=== PATIENT | male | born 1950 | race Caucasian/White ===

== ENCOUNTER 2020-11-06 19:45 | Inpatient (IN) | payer MEDICARE, OTHER ==
[~2020-11-06] VITALS: Ht 188 cm; Wt 111.9 kg
[~2020-11-06 19:45] MED LIST: BENICAR HCT 12.1 TA1 PO; BENICAR40 MG PO; CARDIZEM LA180 MG PO; CELEBREX 200MG200 MG PO; CELEXA 20MG20 MG/TAB PO; COUMADIN 2MG2 MG/TAB PO; COZAAR100 MG PO; GLUCOPHAGE XR500 M1 PO; JANTOVEN5 MG PO; JANTOVEN6 MG; KLOR-CON M2020 MEQ PO; LANOXIN 0.25M0.25 MG PO; LASIX 20MG TABL20 MG PO; LASIX 40MG TABL40 MG PO; NEURONTIN300 MG/CAP PO; ULTRAM 50MG TAB50 MG PO; ZOCOR 10MG10 MG PO
[2020-11-06 20:20] LABS: MEAN CELL VOLUME 94 fl (80.0-100.0); MEAN CORPUSCULAR HGB CONC 34 g/dl (33.0-37.0); PLATELET COUNT 314 K/mm3 (130-400); RED BLOOD COUNT 2.57 M/mm3 (4.20-5.60); REDCELL DISTRIBUTION WIDTH-CV 14.2 % (11.5-14.5)
[2020-11-06 20:37] LABS: ALBUMIN 3.1 gm/dL (3.5-5.0); CALCIUM 8.2 mg/dL (8.4-10.2); CREATININE, serum 1.15 (0.66-1.25); POTASSIUM 3.2 mmol/L (3.4-5.0); TOTAL PROTEIN 5.4 gm/dL (6.4-8.2)
[2020-11-06 20:37] LABS: HEMATOCRIT 24.1 % (42.0-52.0); HEMOGLOBIN 8.2 g/dl (13.5-18.0); MEAN CORPUSCULAR HEMOGLOBIN 32 pg (27.0-31.0)
[2020-11-06 20:48] LABS: TROPONIN-I 0.023 ng/mL (0.000-0.035)
[2020-11-06 20:55] LABS: COLLECTION METHOD CLEAN CATCH
[2020-11-06 21:30] LABS: MUCOUS Present /lpf; PH 5 (5-8); URINE APPEARANCE Hazy; URINE BACTERIA None Seen /hpf; URINE BILIRUBIN Negative (NEGATIVE); URINE BLOOD 1+ (NEGATIVE); URINE COLOR Yellow; URINE GLUCOSE Negative (NEGATIVE); URINE KETONE Negative (NEGATIVE); URINE LEUKOCYTE ESTERASE 3+ (NEGATIVE); URINE NITRATE Negative (NEGATIVE); URINE PROTEIN(semi-quant) 1+ (NEGATIVE)
[2020-11-06 21:36] LABS: BAND 3 % (0-10); LYMPHOCYTE 6 % (20.0-51.0); MYELOCYTE 2 % (0-0); NEUTROPHILS 86 % (42.0-75.2)
[2020-11-06 21:38] LABS: BURR CELLS 1+; PLATELET ESTIMATE NORMAL (NORMAL)
[2020-11-06 21:40] LABS: SQUAMOUS EPITHELIAL 0-2 /hpf
[2020-11-06 21:53] LABS: INR > 5.0 (0.8-3.0)
[2020-11-06] MEDS ORDERED: ULTRAM 50MG TAB50 MG PO (22:03)
[2020-11-06] MEDS ORDERED: ZAROXOLYN5 MG PO (22:03)
[2020-11-06] MEDS ORDERED: CELEXA40 MG PO (22:04)
[2020-11-06] MEDS ORDERED: CELEBREX 200MG200 MG PO (22:04)
[2020-11-06] MEDS ORDERED: GLUCOPHAGE XR500 M1 PO (22:05)
[2020-11-06] MEDS ORDERED: COUMADIN4 MG PO (22:05)
[2020-11-06] MEDS ORDERED: COUMADIN 5MG5 MG/TAB PO (22:06)
--- NOTE | 2020-11-06 23:00 | NUR ---
Received report from MAYCO Lea in the ED. Awaiting patient arrival to unit at this time.
[2020-11-07] VITALS (669 sets, daily range): BP systolic 96–148; BP diastolic 55–105; PULSE 86–119; TEMP 97–98.9; O2SAT 57–100
--- NOTE | 2020-11-07 01:00 | NUR ---
Patient arrived to unit via stretcher and transferred to bed. VSS upon arrival. Patient a&o x 4. No concerns or complaints noted from patient at this time. Will complete admission assessment and resume care of patient at this time.
[2020-11-07 02:31] LABS: HEMATOCRIT 18.6 % (42.0-52.0); HEMOGLOBIN 6.4 g/dl (13.5-18.0)
--- NOTE | 2020-11-07 07:00 | NUR ---
PT RESTING IN BED. PT RECEIVED IV KCL AND RBC'S AT THIS TIME. VSS. PT NPO FOR GI CONSULT. WILL CONTINUE TO MONITOR.
[2020-11-07 09:36] LABS: MEAN CELL VOLUME 94 fl (80.0-100.0); MEAN CORPUSCULAR HGB CONC 34 g/dl (33.0-37.0); MEAN PLATELET VOLUME 9.8 fl (7.4-10.4); PLATELET COUNT 258 K/mm3 (130-400); RED BLOOD COUNT 1.99 M/mm3 (4.20-5.60); REDCELL DISTRIBUTION WIDTH-CV 14.9 % (11.5-14.5)
[2020-11-07 09:44] LABS: ALBUMIN 2.7 gm/dL (3.5-5.0); BILIRUBIN,TOTAL 0.9 mg/dL (0.0-1.0); CALCIUM 7.4 mg/dL (8.4-10.2); CREATININE, serum 1.72 (0.66-1.25); POTASSIUM 4.1 mmol/L (3.4-5.0); TOTAL PROTEIN 4.9 gm/dL (6.4-8.2)
[2020-11-07 09:52] LABS: HEMATOCRIT 18.6 % (42.0-52.0); HEMOGLOBIN 6.4 g/dl (13.5-18.0); MEAN CORPUSCULAR HEMOGLOBIN 32 pg (27.0-31.0)
[2020-11-07 10:00] LABS: INR 4.1 (0.8-3.0)
[2020-11-07 10:45] LABS: PROTHROMBIN TIME 46.1 SECONDS (9.7-12.8)
--- NOTE | 2020-11-07 11:38 | NUR ---
NOTIFIEF OF HGB, INR, AND LACTIC. AWAITING ORDERS.
[2020-11-07 11:39] LABS: BAND 6 % (0-10); LYMPHOCYTE 3 % (20.0-51.0); NEUTROPHILS 89 % (42.0-75.2); PLATELET ESTIMATE NORMAL (NORMAL)
--- NOTE | 2020-11-07 16:05 | NUR ---
0900 'S OFFICE CALLED REGARDING CONSULT. 1600 'S CELL CALLED TO FOLLOW UP WITH CONSULT. NO ANSWER. MESSAGED LEFT.
--- NOTE | 2020-11-07 16:11 | NUR ---
RETURNED CALL. NOTIFIED OF CONSULT.
[2020-11-07 16:16] LABS: CALCIUM 6.9 mg/dL (8.4-10.2); CREATININE, serum 1.79 (0.66-1.25); POTASSIUM 4.3 mmol/L (3.4-5.0)
[2020-11-07 16:20] LABS: HEMATOCRIT 21.3 % (42.0-52.0); HEMOGLOBIN 7.1 g/dl (13.5-18.0)
--- NOTE | 2020-11-07 16:36 | NUR ---
Marketing Copywriter met with the patient to complete intake. [place] with his , Beena. The patient has a cane, walker, and is independent with ADLs. The patient's PCP is Dr. Cid and patient receives medications from [facility] in [place]. The patient does not have advanced directives in the EMR but states they are complete and designate his Beena. The patient plans to return home with Beena with no anticipated needs. PT/OT ordered. *Discharge disposition at this time: Home with spouse (PT/OT ordered)
[2020-11-08] VITALS (813 sets, daily range): BP systolic 126–160; BP diastolic 71–89; PULSE 81–97; TEMP 98–99.8; O2SAT 73–100
[2020-11-08 01:42] LABS: HEMATOCRIT 18.8 % (42.0-52.0); HEMOGLOBIN 6.6 g/dl (13.5-18.0)
[2020-11-08 06:13] LABS: MEAN CELL VOLUME 93 fl (80.0-100.0); MEAN CORPUSCULAR HGB CONC 34 g/dl (33.0-37.0); MEAN PLATELET VOLUME 9.4 fl (7.4-10.4); PLATELET COUNT 248 K/mm3 (130-400); REDCELL DISTRIBUTION WIDTH-CV 14.6 % (11.5-14.5)
[2020-11-08 06:14] LABS: HEMATOCRIT 23.2 % (42.0-52.0); HEMOGLOBIN 7.9 g/dl (13.5-18.0); MEAN CORPUSCULAR HEMOGLOBIN 32 pg (27.0-31.0)
[2020-11-08 06:32] LABS: ALBUMIN 2.6 gm/dL (3.5-5.0); BILIRUBIN,TOTAL 0.7 mg/dL (0.0-1.0); CALCIUM 7.4 mg/dL (8.4-10.2); CREATININE, serum 1.6 (0.66-1.25); POTASSIUM 3.6 mmol/L (3.4-5.0); TOTAL PROTEIN 4.9 gm/dL (6.4-8.2)
[2020-11-08 06:40] LABS: INR 5.6 (0.8-3.0); PROTHROMBIN TIME 63.2 SECONDS (9.7-12.8)
[2020-11-08 07:08] LABS: ANISOCYTOSIS 1+; BAND 4 % (0-10); LYMPHOCYTE 5 % (20.0-51.0); METAMYELOCYTE 2 % (0-0); NEUTROPHILS 84 % (42.0-75.2); POIKILOCYTOSIS 1+
[2020-11-08 07:09] LABS: HYPOCHROMIA 1+; OVALOCYTES 1+; PLATELET ESTIMATE NORMAL (NORMAL)
--- NOTE | 2020-11-08 07:15 | NUR ---
Dr Owen at bedside to see patient. No plans for endoscopy procedure at this time. Notified of critical INR level. Reports can eat from his standpoint.
--- NOTE | 2020-11-08 08:00 | NUR ---
Patient napping in bed; awakens easily. VS stable at this time. Reports some left lower chest pain and chronic knee pain from arthritis. Patient has fallen multiple times while at time. States the chest pain began after the fall. Hospitalist notified of the chest pain. No new orders received. Can administer PRN tramadol for pain.
[2020-11-08 09:25] LABS: MAGNESIUM 1.8 mg/dL (1.6-2.3)
--- NOTE | 2020-11-08 18:45 | NUR ---
Patient found a large engored tick on himself that was not attached at the time. Placed in a specimen cup and hospitalist notified. Skin check performed but did not find any other specimens.
--- NOTE | 2020-11-08 21:39 | NUR ---
PATIENT OPENS EYES WHEN BEING APPROACHED BY STAFF, ORIENTED TIME 3, COMPLAINS OF NUSIANCE PAIN OF LT KNEE AND RIGHT HIP, DENIES MEDICATION, REPOSITION TO COMFORT PATIENT DIRECTED.
[2020-11-09] VITALS (625 sets, daily range): BP systolic 108–128; BP diastolic 69–90; PULSE 72–91; TEMP 98–99.1; O2SAT 65–100
[2020-11-09 01:04] LABS: HEMATOCRIT 20.3 % (42.0-52.0); HEMOGLOBIN 7.1 g/dl (13.5-18.0)
[2020-11-09 04:32] LABS: MEAN CELL VOLUME 92 fl (80.0-100.0); MEAN CORPUSCULAR HGB CONC 34 g/dl (33.0-37.0); MEAN PLATELET VOLUME 8.8 fl (7.4-10.4); PLATELET COUNT 236 K/mm3 (130-400); RED BLOOD COUNT 2.25 M/mm3 (4.20-5.60); REDCELL DISTRIBUTION WIDTH-CV 15.9 % (11.5-14.5)
[2020-11-09 04:39] LABS: INR 1.6 (0.8-3.0)
[2020-11-09 04:41] LABS: HEMATOCRIT 20.6 % (42.0-52.0); MEAN CORPUSCULAR HEMOGLOBIN 31 pg (27.0-31.0)
[2020-11-09 04:52] LABS: ALBUMIN 2.2 gm/dL (3.5-5.0); BILIRUBIN,TOTAL 1.2 mg/dL (0.0-1.0); CALCIUM 7.8 mg/dL (8.4-10.2); CHOLESTEROL RISK RATIO 2.1; CREATININE, serum 0.87 (0.66-1.25); POTASSIUM 3.2 mmol/L (3.4-5.0); TOTAL PROTEIN 4.2 gm/dL (6.4-8.2)
[2020-11-09 05:43] LABS: BAND 2 % (0-10); LYMPHOCYTE 16 % (20.0-51.0); METAMYELOCYTE 2 % (0-0); NEUTROPHILS 67 % (42.0-75.2)
[2020-11-09 05:44] LABS: PLATELET ESTIMATE NORMAL (NORMAL)
--- NOTE | 2020-11-09 07:00 | NUR ---
PT RESTING IN BED. PT HAS NS AND ZOSYN RUNNING. PT'S VSS. WILL CONTIUE TO MONITOR.
--- NOTE | 2020-11-09 18:19 | NUR ---
Pt states his vision is fuzzy and making him feel tired. Pt's vss. Pt's BG WNL. Pt also states he takes fab at home for allergies. Deisi GARRETT notified of above. States she will reorder his fab and come and assess pt.
--- NOTE | 2020-11-09 20:00 | NUR ---
PATIENT CALM AND ALERT, STATES "I'M COMFORTABLE", ASKING TO HELPED IN AND OUT OF BED SO HE CAN BE READY FOR SOME MOIZ WHO WANTS ME TO BE OUT OF BED, RANGE OF MOTION EXERCISES PERFORMED WITH RESISTANCE, WILL CONTINUE TO WORK WITH PATIENT
[2020-11-10] VITALS (303 sets, daily range): BP systolic 110–120; BP diastolic 65–74; PULSE 72–87; TEMP 97.4–98.9; O2SAT 75–100
[2020-11-10 05:33] LABS: BASO % 0.1 % (0.0-2.0); EOS # 0.1 (0.0-0.7); EOS % 0.8 % (0-4.0); GRAN # 10.1 (1.4-6.5); GRAN % 67.4 % (42.2-75.2); LYMPH # 1.4 (1.2-3.4); LYMPH % 9.4 % (20.0-51.0); MEAN CELL VOLUME 94 fl (80.0-100.0); MEAN CORPUSCULAR HGB CONC 33 g/dl (33.0-37.0); MEAN PLATELET VOLUME 9.1 fl (7.4-10.4); MONO % 13.5 % (1.7-9.3); PLATELET COUNT 209 K/mm3 (130-400); RED BLOOD COUNT 2.24 M/mm3 (4.20-5.60); REDCELL DISTRIBUTION WIDTH-CV 17.1 % (11.5-14.5)
[2020-11-10 05:40] LABS: HEMATOCRIT 21.1 % (42.0-52.0); HEMOGLOBIN 6.9 g/dl (13.5-18.0); MEAN CORPUSCULAR HEMOGLOBIN 31 pg (27.0-31.0)
[2020-11-10 05:43] LABS: ALBUMIN 2.4 gm/dL (3.5-5.0); BILIRUBIN,TOTAL 1.3 mg/dL (0.0-1.0); CALCIUM 7.8 mg/dL (8.4-10.2); CREATININE, serum 0.66 (0.66-1.25); MAGNESIUM 1.8 mg/dL (1.6-2.3); POTASSIUM 3.2 mmol/L (3.4-5.0); TOTAL PROTEIN 4.6 gm/dL (6.4-8.2)
--- NOTE | 2020-11-10 07:00 | NUR ---
Pt resting in bed. Pt's VSS. Pt receiving K replacement. Will notify of hgb 6.9. Will continue to monitor.
--- NOTE | 2020-11-10 15:25 | NUR ---
REPORT CALLED TO BRADEN MAO AT 1500. ALL QUESTIONS ANSWERED. PT TRANSFERED TO FLOOR BED AND TAKEN TO ROOM 315. JUDITH MAO MET BEDSIDE. PT'S CHRISSIE CALLED AND UPDATED ON TRANSFER.
--- NOTE | 2020-11-10 15:32 | NUR ---
PT ARRIVED TO FLOOR, ASSSESSMENT PERFORMED, REPORTS PAIN 6/10 IN HIPS AND KNEES, TRAMADOL GIVEN WITH OTHER MEDICATIONS THAT WERE DUE, WATER BROUGHT IN FOR PT, EDUCATED GENERAL HOUSE WORKER LIGHT AND PHONE AND DINNER ORDERING SYSTEM. NO OTHER NEEDS AT THIS TIME.
--- NOTE | 2020-11-10 17:23 | NUR ---
had dark tarry loose stool, external male cath attached, pt pleasant, aox4, pauma, frequently repositioned, pt reported pain in joints, medication given. helped pt order dinner, updated. no other needs.
[2020-11-11] VITALS (7 sets, daily range): BP systolic 113–133; BP diastolic 69–91; PULSE 73–85; TEMP 98–98.5
--- NOTE | 2020-11-11 06:03 | NUR ---
Did have a fairly quiet night-- good output via external catheter, had a very small black stoolx1,, was given Ultram for hip/knee pain x1
[2020-11-11 07:13] LABS: MEAN CELL VOLUME 98 fl (80.0-100.0); MEAN CORPUSCULAR HGB CONC 32 g/dl (33.0-37.0); MEAN PLATELET VOLUME 8.8 fl (7.4-10.4); PLATELET COUNT 249 K/mm3 (130-400); RED BLOOD COUNT 2.41 M/mm3 (4.20-5.60); REDCELL DISTRIBUTION WIDTH-CV 17.8 % (11.5-14.5)
[2020-11-11 07:18] LABS: INR 5.2 (0.8-3.0); PROTHROMBIN TIME 59.1 SECONDS (9.7-12.8)
[2020-11-11 07:21] LABS: HEMATOCRIT 23.5 % (42.0-52.0); HEMOGLOBIN 7.4 g/dl (13.5-18.0); MEAN CORPUSCULAR HEMOGLOBIN 31 pg (27.0-31.0)
[2020-11-11 07:58] LABS: ALBUMIN 2.5 gm/dL (3.5-5.0); BILIRUBIN,TOTAL 1.5 mg/dL (0.0-1.0); CALCIUM 7.9 mg/dL (8.4-10.2); CREATININE, serum 0.73 (0.66-1.25); MAGNESIUM 1.8 mg/dL (1.6-2.3); POTASSIUM 3.7 mmol/L (3.4-5.0)
[2020-11-11 08:37] LABS: BASOPHIL 1 % (0-2); EOSINOPHIL 1 % (0-4); LYMPHOCYTE 11 % (20.0-51.0); METAMYELOCYTE 2 % (0-0); NEUTROPHILS 77 % (42.0-75.2)
[2020-11-11 08:38] LABS: ANISOCYTOSIS 2+; HYPOCHROMIA 2+; PLATELET ESTIMATE NORMAL (NORMAL)
--- NOTE | 2020-11-11 11:13 | NUR ---
Shift assessment complete. A&Ox4. Heart RRR. Lungs CTA. Bowel sounds active, abdomen nondistended, denies tenderness. Reports chronic pain to hips and knees, 11/21. Tramadol given per orders. 3+ edema to BLE. Large bruises scattered over body, large bruise to right buttock and several more over arms and legs. Vitamin K infusion started at this time and remained at pt bedside for duration of infusion.
[2020-11-11 15:29] LABS: HEMATOCRIT 26.9 % (42.0-52.0); HEMOGLOBIN 8.5 g/dl (13.5-18.0)
[2020-11-11 15:31] LABS: INR 2.7 (0.8-3.0); PROTHROMBIN TIME 30.7 SECONDS (9.7-12.8)
--- NOTE | 2020-11-11 19:35 | NUR ---
Initial shift assessment done- patient very upset/ states previous nurse stated she would be right back with another external cath to put on-- previous nurse did attempt to put new condom external cath on at shift change and was unsuccessful, also was informed in report that doctor would like pt to start voiding on his own in a urinal -- talked with patient at length about trying a urinal tonight and he was ok with this--did use the urinal at this time for 250cc yellow urine,, patient confused tonight- when asked about a tick that was found on his body in ICU, he got very defensive and states that we had already talked about this twice tonight??-defensive and angry tonight. VSS, Denies pain at this time.
[2020-11-12 03:18] VITALS: BP 111/65; PULSE 69; TEMP 97.5
--- NOTE | 2020-11-12 05:47 | NUR ---
Quiet night-has been sleeping well,, VSS,, used urinal throughout the night.
[2020-11-12 06:00] LABS: MEAN CELL VOLUME 100 fl (80.0-100.0); MEAN CORPUSCULAR HGB CONC 32 g/dl (33.0-37.0); MEAN PLATELET VOLUME 8.9 fl (7.4-10.4); PLATELET COUNT 268 K/mm3 (130-400); RED BLOOD COUNT 2.51 M/mm3 (4.20-5.60)
[2020-11-12 06:05] LABS: INR 1.4 (0.8-3.0); PROTHROMBIN TIME 15.3 SECONDS (9.7-12.8)
[2020-11-12 06:14] LABS: HEMATOCRIT 25.2 % (42.0-52.0); MEAN CORPUSCULAR HEMOGLOBIN 32 pg (27.0-31.0)
[2020-11-12 06:18] LABS: ALBUMIN 2.6 gm/dL (3.5-5.0); BILIRUBIN,TOTAL 1.7 mg/dL (0.0-1.0); CREATININE, serum 0.61 (0.66-1.25); MAGNESIUM 1.9 mg/dL (1.6-2.3); POTASSIUM 4.3 mmol/L (3.4-5.0)
--- NOTE | 2020-11-12 06:30 | NUR ---
PT ASLEEP DURING ROUNDING. NO CONCERNS AT THIS TIME. WILL RETURN FOR ASSESSMENT.
[2020-11-12 06:53] LABS: ANISOCYTOSIS 2+; BAND 3 % (0-10); EOSINOPHIL 1 % (0-4); LYMPHOCYTE 10 % (20.0-51.0); NEUTROPHILS 75 % (42.0-75.2)
[2020-11-12 07:24] VITALS: BP 126/72; PULSE 80; TEMP 97.9
[2020-11-12 12:02] VITALS: BP 117/68; PULSE 71; TEMP 98.5
--- NOTE | 2020-11-12 12:19 | NUR ---
PT IS SITTING UP IN BED, HAS NOT BEEN OUT OF BED EXCEPT WITH PT/OT. PT DENIES ANY PAIN AND HAS NO COMPLAINTS OR CONCERNS. THERE ARE NO CONCERNS FROM THIS RN AT THIS TIME.
--- NOTE | 2020-11-12 12:59 | NUR ---
PT is recommending post-acute rehab and to consider IPR. OLENA met with the patient to discuss their recommendation. The patient reports that he would be interested in post-acute rehab. SW provided him with Medicare.gov's list of SNFs in the [facility]. The patient reports that he would prefer to just stay in the [facility]. He preferred 1) IPR and he was open for SW to send referrals to the [facility] as his second preference. OLENA consulted Eliza, with IPR. OLENA contacted and faxed a referral to [facility], [facility], and [facility]. Awaiting screens. OLENA attempted to contact and update the patient's , Beena. OLENA left her a voicemail. *Discharge plan: post-acute rehab, awaiting acceptance*
--- NOTE | 2020-11-12 13:46 | NUR ---
Yumiko, at [facility], reports that they are able to accept the patient for a skilled stay.
[2020-11-12 16:17] VITALS: BP 115/68; PULSE 83; TEMP 98.3
--- NOTE | 2020-11-12 20:00 | NUR ---
Assessment complete. Patient is alert and oriented with complaints of generalized pain; PRN tramadol administered per patient request. 2+ pitting edema is present in bilateral lower extremities and feet. Patient has voided 1000 mls into urinal; urine is yellow and clear. Lungs are clear with diminished bases and heart sounds are normal/regular. Bowel sounds audible in all quadrants. Zosyn infusing into right forearm IV. Comfort measures provided and no additional concerns. Call light in reach and bed alarm set.
[2020-11-12 20:17] VITALS: BP 110/71; PULSE 77; TEMP 97.8
[2020-11-12 23:39] VITALS: BP 103/64; PULSE 71; TEMP 97.4
[2020-11-13 04:45] VITALS: BP 116/68; PULSE 77; TEMP 98
[2020-11-13 06:27] LABS: MEAN CELL VOLUME 102 fl (80.0-100.0); MEAN CORPUSCULAR HGB CONC 30 g/dl (33.0-37.0); MEAN PLATELET VOLUME 8.7 fl (7.4-10.4); PLATELET COUNT 299 K/mm3 (130-400); RED BLOOD COUNT 2.69 M/mm3 (4.20-5.60); REDCELL DISTRIBUTION WIDTH-CV 19.9 % (11.5-14.5)
[2020-11-13 06:30] LABS: INR 1.5 (0.8-3.0); PROTHROMBIN TIME 17.2 SECONDS (9.7-12.8)
[2020-11-13 06:35] LABS: HEMATOCRIT 27.4 % (42.0-52.0); HEMOGLOBIN 8.3 g/dl (13.5-18.0); MEAN CORPUSCULAR HEMOGLOBIN 31 pg (27.0-31.0)
[2020-11-13 06:47] LABS: CALCIUM 8.2 mg/dL (8.4-10.2); CREATININE, serum 0.79 (0.66-1.25); POTASSIUM 4.3 mmol/L (3.4-5.0)
[2020-11-13 08:09] LABS: ANISOCYTOSIS 2+; BAND 1 % (0-10); EOSINOPHIL 3 % (0-4); LYMPHOCYTE 6 % (20.0-51.0); METAMYELOCYTE 2 % (0-0); NEUTROPHILS 81 % (42.0-75.2); PLATELET ESTIMATE NORMAL (NORMAL)
[2020-11-13 08:10] LABS: HYPOCHROMIA 3+
[2020-11-13 08:18] VITALS: BP 122/69; PULSE 72; TEMP 98.1
[2020-11-13 10:52] VITALS: BP 109/73; PULSE 81; TEMP 97.7
--- NOTE | 2020-11-13 14:39 | NUR ---
Eliza, with [facility], reports that they are able to accept the patient. The patient may be able to d/c tomorrow. OLENA notified and faxed updates to Yumiko at [facility]. The patient's , Beena, returned OLENA's phone call. OLENA provided her with an update. Beena was in agreement to the plan and for the patient to either go to [facility] or [facility]. Beena provided with her cell phone number (#[phone]). *Discharge plan: Has been accepted to [facility] and [facility]*
[2020-11-13 17:00] VITALS: BP 111/69; PULSE 71; TEMP 98.2
--- NOTE | 2020-11-13 20:00 | NUR ---
Assessment complete. Patient alert and oriented with complaints of generalized pain 4/10; PRN Tramadol administered. 2+ pitting edema in bilateral lower extremities is present. Patient requests a snack, which is provided. 350 mls of clear, yellow urine is emptied from urinal. No new concerns at this time, will continue to monitor. Call light in reach.
--- NOTE | 2020-11-13 20:05 | NUR ---
PT HAS HAD UNEVENTFUL DAY. PLAN IS TO TRANSFER TO [facility] TOMORROW. REPORT GIVEN TO MAYCO ANTONIO
[2020-11-13 20:29] VITALS: BP 115/72; PULSE 70; TEMP 98
[2020-11-14 00:17] VITALS: BP 111/64; PULSE 69; TEMP 97.8
[2020-11-14 03:15] VITALS: BP 99/71; PULSE 57; TEMP 97.9
[2020-11-14 06:35] LABS: INR 1.5 (0.8-3.0); PROTHROMBIN TIME 16.3 SECONDS (9.7-12.8)
[2020-11-14 06:43] LABS: CALCIUM 8.5 mg/dL (8.4-10.2); CREATININE, serum 0.76 (0.66-1.25); POTASSIUM 4.6 mmol/L (3.4-5.0)
[2020-11-14 06:46] LABS: MEAN CELL VOLUME 104 fl (80.0-100.0); MEAN CORPUSCULAR HGB CONC 30 g/dl (33.0-37.0); MEAN PLATELET VOLUME 8.8 fl (7.4-10.4); PLATELET COUNT 335 K/mm3 (130-400); RED BLOOD COUNT 2.78 M/mm3 (4.20-5.60); REDCELL DISTRIBUTION WIDTH-CV 20.2 % (11.5-14.5)
[2020-11-14 06:52] LABS: HEMOGLOBIN 8.8 g/dl (13.5-18.0); MEAN CORPUSCULAR HEMOGLOBIN 32 pg (27.0-31.0)
[2020-11-14 07:11] LABS: MAGNESIUM 2.3 mg/dL (1.6-2.3)
[2020-11-14 07:31] VITALS: BP 106/64; PULSE 69; TEMP 98.1
[2020-11-14 07:44] LABS: BAND 1 % (0-10); BASOPHIL 1 % (0-2); EOSINOPHIL 3 % (0-4); LYMPHOCYTE 10 % (20.0-51.0); METAMYELOCYTE 1 % (0-0); MYELOCYTE 1 % (0-0); NEUTROPHILS 74 % (42.0-75.2)
[2020-11-14 07:46] LABS: ANISOCYTOSIS 2+; HYPOCHROMIA 3+; PLATELET ESTIMATE NORMAL (NORMAL)
[2020-11-14 07:48] LABS: SCHISTOCYTES 1+
--- NOTE | 2020-11-14 08:28 | NUR ---
Fahad, at [facility], reports that they are able to accept the patient.
--- NOTE | 2020-11-14 09:32 | NUR ---
Pt assessment complete. Pt is sitting up in bed upon entry, he is A/O x4. His breathing is even and unlabored on RA. He currently denies pain, states he does have a little "chest pain" with deep inspiration. Reports having a BM this am. BLE elevated on pillows. Pt states he got up to the restroom today, feels he does need therapy. No further needs, call light within reach.
[2020-11-14 11:39] VITALS: BP 112/75; PULSE 71
[2020-11-14 12:41] VITALS: BP 123/62; PULSE 77; TEMP 98
--- NOTE | 2020-11-14 16:08 | NUR ---
OLENA attended clinical rounds. The team would like to check the patient's orthostatics. The PA then notified SW that the patient may now need an endoscopy and she is checking with the GI doctor on when they can do it. Possibly tomorrow, Wednesday, or after IPR. OLENA attempted to contact and update the patient's . OLENA left her a voicemail.
[2020-11-14 17:13] VITALS: BP 123/69; PULSE 67; TEMP 98.1
--- NOTE | 2020-11-14 18:46 | NUR ---
pt had uneventful day. Up to the restroom with 1A and walker. BLE elevated on pillows. No pain reported. Good UOP. CUrrently on bowel prep. POC discussed with patient. No needs at this itme .
--- NOTE | 2020-11-14 20:00 | NUR ---
Assessment complete. PAtient is alert and oriented with complaints of generalized pain 4/10; PRN tramadol administered. Bilateral lower extremity edema is still present with 2+ pitting. Patient has started Golytley bowel prep; He is up to [facility] with assistance of two and gaitbelt/walker. Call light in reach, will continue bowel prep.
[2020-11-15 00:15] VITALS: BP 129/64; PULSE 77; TEMP 97.2
[2020-11-15 05:16] VITALS: BP 116/80; PULSE 62; TEMP 98.9
[2020-11-15 07:20] VITALS: BP 121/74; PULSE 82; TEMP 98.5
--- NOTE | 2020-11-15 07:30 | NUR ---
Patient called for assistance to BSC, 1assist with walker and gait belt. Reporting pain in legs r/t swelling. A&Ox4. VSS. IV CDI. NPO for procedure. Contact precautions in place. No further needs expressed from the patient. Call light within reach
[2020-11-15 08:34] LABS: MEAN CELL VOLUME 104 fl (80.0-100.0); MEAN CORPUSCULAR HGB CONC 31 g/dl (33.0-37.0); MEAN PLATELET VOLUME 8.7 fl (7.4-10.4); PLATELET COUNT 380 K/mm3 (130-400); RED BLOOD COUNT 3.05 M/mm3 (4.20-5.60); REDCELL DISTRIBUTION WIDTH-CV 21.3 % (11.5-14.5)
[2020-11-15 08:43] LABS: HEMATOCRIT 31.7 % (42.0-52.0); HEMOGLOBIN 9.7 g/dl (13.5-18.0); MEAN CORPUSCULAR HEMOGLOBIN 32 pg (27.0-31.0)
[2020-11-15 08:50] LABS: CALCIUM 8.2 mg/dL (8.4-10.2); CREATININE, serum 0.7 (0.66-1.25); POTASSIUM 4.2 mmol/L (3.4-5.0)
[2020-11-15 09:01] LABS: ANISOCYTOSIS 2+; BAND 4 % (0-10); EOSINOPHIL 2 % (0-4); LYMPHOCYTE 8 % (20.0-51.0); METAMYELOCYTE 1 % (0-0); NEUTROPHILS 77 % (42.0-75.2); PLATELET ESTIMATE NORMAL (NORMAL)
[2020-11-15] MEDS ORDERED: TOPROL XL 25MG25 MG PO (10:54)
[2020-11-15] MEDS ORDERED: CLARITIN 1010 MG/TAB PO (10:54)
[2020-11-15] MEDS ORDERED: FERRO-TIME325 MG PO (10:54)
[2020-11-15] MEDS ORDERED: ALDACTONE 25MG25 M1 PO (10:55)
--- NOTE | 2020-11-15 10:56 | NUR ---
The hospitalist notified OLENA that they will wait until after the patient's stay in [facility] to do the colonoscopy as an outpatient. The hospitalist is ready to d/c the patient today. OLENA notified Princess with [facility]. [place] reports that they are able to accept the patient today. The patient is to discharge today, 11/15, to [facility]'s [facility]. OLENA contacted and updated the patient's , Beena. She was agreeable to the above plan. No additional needs at this time.
[2020-11-15] MEDS ORDERED: PROTONIX 40MG T40 MG PO (10:57)
[2020-11-15] MEDS ORDERED: ASPIRIN 81M81 MG/TA2 PO (10:58)
[2020-11-15 12:00] VITALS: BP 122/77; PULSE 71; TEMP 97.9
== END 2020-11-15 16:00 | DRG 871 ==
LOC: COL.ER 19:45 → MEDICAL 22:23 → ICU 22:23 → MEDICAL 11-10 15:24
PROVIDERS: Emergency Medicine; Hospitalist; Nurse Practitioner Family; Physician Assistant; Student in an Organized Health Care Education/Training Program; ADMIT Internal Medicine
DX: A41.9 Sepsis, unspecified organism (principal); R65.21 Severe sepsis with septic shock; K72.00 Acute and subacute hepatic failure without coma; R57.1 Hypovolemic shock; I50.21 Acute systolic (congestive) heart failure; N39.0 Urinary tract infection, site not specified; K92.1 Melena; D68.32 Hemorrhagic disorder due to extrinsic circulating anticoagulants; I42.9 Cardiomyopathy, unspecified; N17.9 Acute kidney failure, unspecified; E87.3 Alkalosis; E87.1 Hypo-osmolality and hyponatremia; I48.20 Chronic atrial fibrillation, unspecified; I44.2 Atrioventricular block, complete; B17.9 Acute viral hepatitis, unspecified; D62 Acute posthemorrhagic anemia; I11.0 Hypertensive heart disease with heart failure; E78.5 Hyperlipidemia, unspecified; I48.91 Unspecified atrial fibrillation; E87.6 Hypokalemia; M79.81 Nontraumatic hematoma of soft tissue; E27.9 Disorder of adrenal gland, unspecified; H52.03 Hypermetropia, bilateral; H11.153 Pinguecula, bilateral; T45.515A Adverse effect of anticoagulants, initial encounter; E11.9 Type 2 diabetes mellitus without complications; F17.210 Nicotine dependence, cigarettes, uncomplicated; Z79.01 Long term (current) use of anticoagulants; Z95.0 Presence of cardiac pacemaker; Z79.84 Long term (current) use of oral hypoglycemic drugs; Z96.642 Presence of left artificial hip joint
CPT/HCPCS: 99223-AI; 99232-AI; 99233-AI; C9113; C9132; J0696; J1815; J1940; J2543; J2704; J3010; J3430; J3480; J7030; P9016; Q9967

== ENCOUNTER 2020-11-15 11:26 | Inpatient (IN) | payer MEDICARE, OTHER ==
[~2020-11-15] VITALS: Ht 188 cm; Wt 104.8 kg
[~2020-11-15 11:26] MED LIST changes: +ALDACTONE 25MG25 M1 PO; +ASPIRIN 81M81 MG/TA2 PO; +CELEXA40 MG PO; +CLARITIN 1010 MG/TAB PO; +COUMADIN 5MG5 MG/TAB PO; +COUMADIN4 MG PO; +FERRO-TIME325 MG PO; +PROTONIX 40MG T40 MG PO; +TOPROL XL 25MG25 MG PO; +ZAROXOLYN5 MG PO
[2020-11-15 18:09] VITALS: BP 98/70; PULSE 75; TEMP 98.7
--- NOTE | 2020-11-15 18:30 | NUR ---
Patient arrived to the room from Medical at about 1630. Denies nausea. Stated having some pain to BLE/FEET. He couldn't really describe the pain but stated the pain starts when he stands up and walks. Denies pain when sitting down and his legs are elvated. Pitting edema to BLE. Several bruises to bilateral legs. He stated he has several falls at home before coming to the hospital. He also has 2 large bruises to his mid and right upper chest, about softball sized. No other changes at this time. Call light within reach.
[2020-11-16 06:18] VITALS: BP 105/66; PULSE 72; TEMP 97.9
--- NOTE | 2020-11-16 07:10 | NUR ---
PATIENT ALERT AND ORIENTED. OUT OF BED WITH ONE ASSIST AND WALKER. INCONTINENT OF BOWEL. NO EVENT OVER NIGHT.
--- NOTE | 2020-11-16 10:48 | NUR ---
Patient has bilateral lower leg edema and foot adema. He was measured for knee high Kvng Hose and they were applied. Patient continues on contact precaustions for MRSA. Patient's blood sugar was taken after he had eaten so patient refused to take morning insulin reporting that it is usually low in the mornings before breakfast. Patient uses the urinal at bedside. He was seen by Dr. Engel this morning. See new order for 500 ml free water restriction and adjustments to some of his meds. Patient currently working with therapy at this time.
--- NOTE | 2020-11-16 12:16 | NUR ---
Patient had blood sugar of 86 and was given Cranberry Juice. He did not get his lunch delivered with the rest of the IPR patient's, but this nurse called the kitchen and they should be delivering it soon.
[2020-11-16 14:08] VITALS: BP 101/57; PULSE 78
--- NOTE | 2020-11-16 14:25 | NUR ---
Patient complaining of a headache and given tylenol. Blood pressure is soft, but Dr. Engel is aware of this. Will continue to monitor.
[2020-11-16 17:37] VITALS: BP 113/72; PULSE 78; TEMP 98.3
--- NOTE | 2020-11-16 19:43 | NUR ---
Patient attended therapy this morning. He tolerated all his meals. Given prn pain med for bilateral foot pain. He spilled his gatorade all over his bed and on the floor this evening and this nurse assisted patient with changing his bedding. Patient currently resting in bed, call light in reach and bed alarm set. Will continue to monitor.
--- NOTE | 2020-11-17 04:11 | NUR ---
PATIENT ALERT AND ORIENTED. HAD A GOOD NIGHT SLEEP. PAIN MEDICATION GIVEN WITH GOOD EFFECT. CALL LIGHT WITHING REACH, BED IN LOW POSITION. TOLERATED PO WELL. WILL CONTINUE.
[2020-11-17 05:59] VITALS: BP 110/72; PULSE 74; TEMP 97.3
--- NOTE | 2020-11-17 08:35 | NUR ---
Patient set up with grooming. Dependent with changing brief. Wiped bottom, he assisted with pulling pants up and down. He has company coming this morning. Denies questions at this time.
[2020-11-17 16:02] VITALS: BP 107/69; BP 120/69; PULSE 76; TEMP 98.9
--- NOTE | 2020-11-17 16:02 | NUR ---
Call placed to patient's Beena discussing patient's lab result for being positive for MRSA. Patient reported that he had never been told that he had this and wanted it to be explained to his , Beena. She would like to get more information on what she will need to do when he returns home and what she may need to do since he aquired this from home/farm possibly. Will leave a message with infection control to get more information on MRSA for patient.
--- NOTE | 2020-11-17 19:30 | NUR ---
RECEIVED CHANGE OF SHIFT REPORT FROM DAY SHIFT NURSE. BED ALARM ON. CONTACT ISOLATION CONTINUES.
--- NOTE | 2020-11-17 20:30 | NUR ---
PATIENT REPORTS ACROSS THE CHEST PAIN IS "WORSE TODAY" STATING HE HAS THE PAIN "EVERY TIME I TAKE A BREATH" STATES HIS BREATHING IS STILL SHORT OF BREATHE, AWARE THAT HE WAS STARTED ON LASIX YESTERDAY AND IS URINATING MORE TODAY.
[2020-11-18 05:39] VITALS: BP 119/72; PULSE 74; TEMP 98.3
--- NOTE | 2020-11-18 07:02 | NUR ---
CHANGE OF SHIFT REPORT GIVEN TO DAY SHIFT NURSE, BRENDA MAO.
[2020-11-18 07:23] LABS: BASO # 0.1 (0.0-0.2); BASO % 0.5 % (0.0-2.0); EOS # 0.1 (0.0-0.7); EOS % 1.1 % (0-4.0); GRAN # 9.1 (1.4-6.5); GRAN % 81.8 % (42.2-75.2); LYMPH # 0.6 (1.2-3.4); LYMPH % 5.7 % (20.0-51.0); MEAN CELL VOLUME 106 fl (80.0-100.0); MEAN CORPUSCULAR HGB CONC 31 g/dl (33.0-37.0); MEAN PLATELET VOLUME 8.2 fl (7.4-10.4); MONO # 1.2 (0.1-0.6); MONO % 10.3 % (1.7-9.3); PLATELET COUNT 376 K/mm3 (130-400); RED BLOOD COUNT 2.95 M/mm3 (4.20-5.60); REDCELL DISTRIBUTION WIDTH-CV 21.4 % (11.5-14.5)
[2020-11-18 07:26] LABS: HEMATOCRIT 31.2 % (42.0-52.0); HEMOGLOBIN 9.8 g/dl (13.5-18.0); MEAN CORPUSCULAR HEMOGLOBIN 33 pg (27.0-31.0)
[2020-11-18 07:31] LABS: INR 1.3 (0.8-3.0); PROTHROMBIN TIME 14.2 SECONDS (9.7-12.8)
[2020-11-18 07:41] LABS: ALBUMIN 2.9 gm/dL (3.5-5.0); BILIRUBIN,TOTAL 1.1 mg/dL (0.0-1.0); CALCIUM 8.3 mg/dL (8.4-10.2); CREATININE, serum 0.71 (0.66-1.25); POTASSIUM 3.9 mmol/L (3.4-5.0); TOTAL PROTEIN 5.6 gm/dL (6.4-8.2)
--- NOTE | 2020-11-18 09:05 | NUR ---
Patient irate, yelling and cursing at nursing and therapy staff. States no one is telling him what is going on and why he is here. States no one told him he had MRSA. Patient states he feels the hospital is hiding stuff from him and not being honest with him. Patient continually yells at anyone who comes into the room. Unable to redirect.
--- NOTE | 2020-11-18 13:29 | NUR ---
Admission QIM scores were reviewed by the team. Code of 3 chosen for toilet hygiene was determined by team discussion to be the most usual performance for this patient during the assessment period. Code of 3 chosen for upper body dressing was determined by team discussion to be the most usual performance for this patient during the assessment period. Code of 3 chosen for lower body dressing was determined by team discussion to be the most usual performance for this patient during the assessment period. Code of 1 chosen for putting on/taking off footwear was determined by team discussion to be the most usual performance for this patient during the assessment period. Code of 4 chosen for rolling left to right was determined by team discussion to be the most usual performance before interventions for this patient during the assessment period. Code of 3 for chair/bed to chair transfers was determined by team discussion to be the most usual performance for this patient during the assessment period.--Vandana Lubin,
--- NOTE | 2020-11-18 16:15 | NUR ---
Sign Erector And Repairer met with the patient to complete intake. The patient lives outside of [place] with his , Beena. The patient has a cane, walker and is independent. The patient's PCP is Dr. Cid and the patient receives medications from [facility] in [place]. The patient does not have advanced directives in the EMR but states they are complete and designate his . SW will continue to follow to ensure the safest discharge disposition.
[2020-11-18 16:37] VITALS: BP 110/71; PULSE 77; TEMP 98.5
--- NOTE | 2020-11-18 19:07 | NUR ---
RECEIVED CHANGE OF SHIFT REPORT REPORT FROM DAY SHIFT NURSE.
--- NOTE | 2020-11-18 20:00 | NUR ---
REPORTS FATIGUE AT THIS TIME D/T DAYTIME THERAPY TREATMENTS WITH PT/OT. DENIES INCREASED CHEST DISCOMFORT WITH DEEP BREATHING, REPORTS HAS DISCOMFORT AT TIMES WITH EXERTION/DEEP BREATHING. REPORTS THINKS HIS BLE SWELLING IS SLOWING IMPROVING. REQUESTS PAIN MED WHEN NEXT AVAILABLE, SEE MAR FOR MEDS GIVEN. REPORTS HAS INTERMITTENT BLURRY VISION STILL WITH SOA/EXERTION, ENCOURAGED PATIENT TO BE MORE AWARE OF BREATHING PATTERNS WHEN ACTIVE AND TRY TO TAKE MORE DEEP BREATHS, VOICING UNDERSTANDING. ENCOURAGED PATIENT TO CALL IF HE HAS ANY NEEDS OR QUESTIONS, AFTER DISCUSSING WHAT CAN STAFF DO TO MEET HIS NEEDS OR CONCERNS/QUESTIONS. PATIENT AGREES THAT KEEPING HIM INFORMED/FOLLOW UP ON ANY VOICED CONCERNS OR QUESTIONS PATIENT MAY HAVE REPORTED WOULD BE HELPFUL. DENIES ANY OTHER NEEDS. BED ALARM ON.
--- NOTE | 2020-11-19 00:14 | NUR ---
PATIENT SLEEPING, DOES NOT WAKE WHEN ROOM ENTERED BY STAFF. BREATHING OBSERVED NONLABORED AND EVEN. BED ALARM ON.
[2020-11-19 03:48] VITALS: BP 115/74; PULSE 76; TEMP 98.3
--- NOTE | 2020-11-19 04:23 | NUR ---
PATIENT DOES NOT WAKE FROM SLEEP WHEN STAFF ENTERS ROOM. BREATHING IS NONLABORED AND EVEN. BED ALARM ENGAGED, CONTACT ISOLATION IN PLACE.
--- NOTE | 2020-11-19 07:10 | NUR ---
CHANGE OF SHIFT GIVEN TO DAY SHIFT NURSE, LIU MAO.
--- NOTE | 2020-11-19 08:10 | NUR ---
Resting in bed, call light in reach and bed alarm set. Continues to have +2 pitting edema to bilateral legs and feet. He is on a 500 ml free water restriction and drinks poweraid. Denies questions at this time.
--- NOTE | 2020-11-19 09:21 | NUR ---
Left message for Torie in infection control. Awaiting for return call.
--- NOTE | 2020-11-19 10:03 | NUR ---
Patient going to Group Therapy at this time.
--- NOTE | 2020-11-19 10:32 | NUR ---
This nurse spoke with Torie with infection control and she reported that she did stop by and saw patient yesterday and provided him information on MRSA. Torie then educated this nurse on what processes patient would need to go through when dealing with MRSA when they get home. Patient's was called and educated on details of at home cares when dealing with MRSA. She voiced understanding.
--- NOTE | 2020-11-19 13:20 | NUR ---
Patient attending Physical Therapy at this time.
--- NOTE | 2020-11-19 15:24 | NUR ---
Feeder Operator contacted the patient's , Beena to set up the family meeting for Monday 11/20 at 1300. It may be moved to 1330 if needed. Beena was in agreeance with the meeting time. She would like to be contacted via phone at # [phone]. OLENA collaborated the above information with Vandana, IPR Director.
[2020-11-19 15:30] VITALS: BP 89/55; PULSE 78; TEMP 98.6
[2020-11-19 15:39] VITALS: BP 98/62; PULSE 72
--- NOTE | 2020-11-19 15:56 | NUR ---
Patient had an episode of dizziness when working with therapy downstairs this afternoon. SBP less then 100. See new orders for holding lasix with blood pressure less then 100. Patient currently sleeping in bed, call light in reach and bed alarm set. Will continue to monitor.
--- NOTE | 2020-11-19 18:26 | NUR ---
Patient is on a fluid restriction of 500 ml free water. He has not had any water this shift. See I&O for other fluid intakes. He has had good urine output, but did not get his evening lasix due to his SBP being so low this evening. Swelling to bilateral feet has increased from this morning and he has more pain when walking due to that edema. Reported off to night nurse.
--- NOTE | 2020-11-19 19:00 | NUR ---
RECEIVED CHANGE OF SHIFT REPORT FROM DAY SHIFT NURSE. BED ALARM ON. FLUID RESTRICTION CONTINUES. CONTACT ISOLATION IN PLACE.
--- NOTE | 2020-11-19 20:00 | NUR ---
DENIES CHEST PAIN/SOA AT THIS TIME. CONTACT ISOLATION CONTINUES. CONTINUES WITH FLUID RESTRICTION OF FREE WATER, SEE ORDER. BED ALARM ON WHEN IN BED.
--- NOTE | 2020-11-20 01:49 | NUR ---
PATIENT SLEEPING, DOES NOT WAKE WHEN STAFF ENTER ROOM. BREATHING NONLABORED AND EVEN. BED ALARM ON.
--- NOTE | 2020-11-20 03:00 | NUR ---
SLEEPS, DOES NOT WAKE WHEN STAFF ENTER ROOM, CONTACT ISOLATION CONTINUES. BED ALARM ON. BREATHING NONLABORED AND EVEN.
[2020-11-20 04:14] VITALS: BP 119/72; PULSE 72; TEMP 98.3
--- NOTE | 2020-11-20 07:00 | NUR ---
Report received from MAYCO Bang. Pt in bed resting, denies needs, mirna lcontinue to monitor.
--- NOTE | 2020-11-20 07:25 | NUR ---
CHANGE OF SHIFT REPORT GIVEN TO DAY SHIFT NURSE, FRANCO MAO.
--- NOTE | 2020-11-20 10:42 | NUR ---
Assessment charted. Pt awake and resting in bed after therapy, denies needs, feels edema to feet is improving, L foot +2, R foot +1. Will continue to monitor.
--- NOTE | 2020-11-20 13:27 | NUR ---
Gaming Director attended family meeting with the patient's , Beena was on speaker phone. Also in attendance were Vandana, IPR Director, PT/OT present. Vandana began the meeting by stating it's purpose. PT/OT discussed the patient's progress. The team is recommending a tentative discharge on Wednesday, 11/26 with outpatient PT. The patient and the patient's were in agreeance with the discharge plan. SW to contact the patient's regarding OP PT options.
[2020-11-20 15:53] VITALS: BP 129/77; PULSE 77; TEMP 97.4
--- NOTE | 2020-11-20 18:18 | NUR ---
Pt has done well today, PRN pain meds provided per request. REsting in bed with call light in reach, using urinal to void well. Denies needs, will give bedside shift report to nightshift nurse who will resume care.
--- NOTE | 2020-11-21 04:44 | NUR ---
PATIENT SLEEP WELL THIS SHIFT. DENIES ANY CHEST PAIN. TYLENOL GIVEN FOR FOOT PAIN. NO EVENT OVER NIGHT. EDEMA TO AGATHA LE L > R. ON LASIX BID. ON CONTACT PRECAUTION FOR MRSA, ISOLATION PRECAUSE MAINTAIN. WILL CONTINUE TO MONITOR.
[2020-11-21 05:39] VITALS: BP 117/78; PULSE 65; TEMP 97.5
[2020-11-21 17:05] VITALS: BP 115/69; PULSE 81; TEMP 98.9
--- NOTE | 2020-11-21 21:00 | NUR ---
PT UPSET THAT HE CANT HAVE COFFEE ON FREE H20 RESTRICTION AND BED ALARM. PROVIDED 100CC OF COFFEE WITH CREAMER. REVIEWED SAFETY POLICY ON IPR. PT AGREEABLE. PT A&OX4. DENIES PAIN. HERNESTO HOSE OFF. SCD'S ON BILAT AT THIS TIME. NO FURTHER NEEDS. CALL LIGHT IN REACH. BED ALARM SET.
[2020-11-22 05:50] VITALS: BP 117/77; PULSE 76; TEMP 98.1
--- NOTE | 2020-11-22 07:00 | NUR ---
Report received from MAYCO King. pT in bed resting, denies needs, will continue to monitor.
--- NOTE | 2020-11-22 09:00 | NUR ---
Assessment charted. Pt resting in bed, doing well, swelling to BLE has improved since Wednesday. 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 PRN pain meds given for anticipation of therapy per request. Discussed plan for discarge . Will ocntinue to monitor.
[2020-11-22 18:15] VITALS: BP 122/71; PULSE 70; TEMP 99.2
--- NOTE | 2020-11-22 18:36 | NUR ---
PT has done well this afternoon, resting off ando n this afternoon between disturbances. Will give bedside shift report to nightshift nruse who will resume care.
--- NOTE | 2020-11-22 19:00 | NUR ---
PT RESTING IN BED. UPSET ABOUT BEING IN ISOLATION. REVIEWED AGAIN RESONS FOR ISOLATION. MOD I IN ROOM.
[2020-11-23 05:59] VITALS: BP 129/75; PULSE 73; TEMP 98
--- NOTE | 2020-11-23 08:00 | NUR ---
PATIENT IS A&O. VSS. NO C/O PAIN OR NAUSEA. INDEPENDENT IN ROOM. HEAD TO TOE ASSESSMENT WNL. AM MEDS GIVEN. BREAKFAST TRAY AT BEDSIDE. CALL LIGHT IN REACH.
[2020-11-23 17:13] VITALS: BP 101/70; PULSE 80; TEMP 98.4
--- NOTE | 2020-11-23 20:00 | NUR ---
PT MOD I IN ROOM. FEELS HE IS STEADY. NO NEEDS AT THIS TIME. REMAINS IN MRSA ISOLATION.
--- NOTE | 2020-11-24 03:10 | NUR ---
PT CONTINUES RESTING WITH SNORUS RESP. NO DISTRESS.
[2020-11-24 06:00] VITALS: BP 126/71; PULSE 81; TEMP 97.8
--- NOTE | 2020-11-24 08:00 | NUR ---
PATIENT IS A&O AND SITTING AT BEDSIDE WITH BREAKFAST TRAY. NO C/O N/V. NO IV SITE. AM MEDS GIVEN. HEAD TO TOE ASSESSMENT COMPLETE. PATIENT IS INDEPENDENT IN ROOM AND HOPES TO DISCHARGE HOME WEDNESDAY. NO OTHER NEEDS. CALL LIGHT IN REACH.
[2020-11-24 16:42] VITALS: BP 131/75; PULSE 82; TEMP 98.1
--- NOTE | 2020-11-24 20:00 | NUR ---
PT MOD I IN ROOM. CONTINUED MRSA ISOLATION. DENIES NEEDS.
[2020-11-25 06:17] VITALS: BP 122/76; PULSE 76; TEMP 98.3
[2020-11-25 06:36] LABS: BASO # 0.2 (0.0-0.2); BASO % 2.5 % (0.0-2.0); EOS # 0.2 (0.0-0.7); EOS % 2.8 % (0-4.0); GRAN # 4.3 (1.4-6.5); GRAN % 65.4 % (42.2-75.2); HEMOGLOBIN 10.1 g/dl (13.5-18.0); LYMPH # 1.1 (1.2-3.4); LYMPH % 16.1 % (20.0-51.0); MEAN CELL VOLUME 104 fl (80.0-100.0); MEAN CORPUSCULAR HEMOGLOBIN 33 pg (27.0-31.0); MEAN CORPUSCULAR HGB CONC 32 g/dl (33.0-37.0); MEAN PLATELET VOLUME 8.8 fl (7.4-10.4); MONO # 0.8 (0.1-0.6); MONO % 12.4 % (1.7-9.3); PLATELET COUNT 411 K/mm3 (130-400); RED BLOOD COUNT 3.07 M/mm3 (4.20-5.60); REDCELL DISTRIBUTION WIDTH-CV 19.4 % (11.5-14.5)
[2020-11-25 06:40] LABS: ALBUMIN 3.2 gm/dL (3.5-5.0); BILIRUBIN,TOTAL 0.7 mg/dL (0.0-1.0); CALCIUM 8.7 mg/dL (8.4-10.2); CREATININE, serum 0.89 (0.66-1.25); TOTAL PROTEIN 6.2 gm/dL (6.4-8.2)
--- NOTE | 2020-11-25 07:00 | NUR ---
Report received from MAYCO King. PT in bed resting, denies needs, will continue to monitor.
--- NOTE | 2020-11-25 12:00 | NUR ---
Assessment charted. Pt doing well, up ad tyo in room, anticipating discharge tomorrow home. Discussed setting up OP PT/OT/ST and Dr. adkins, pt agreeable to plan. Denies needs, PRN pain meds given this am for therapy. Will continue to monitor.
[2020-11-25] MEDS ORDERED: FERRO-TIME325 MG PO (13:52)
[2020-11-25] MEDS ORDERED: TOPROL XL 25MG25 MG PO (13:52)
[2020-11-25] MEDS ORDERED: ALDACTONE 25MG25 M1 PO (13:53)
[2020-11-25] MEDS ORDERED: PROTONIX 40MG T40 MG PO ×2 (13:53)
[2020-11-25] MEDS ORDERED: ZYRTEC 10MG10 MG PO (16:10)
[2020-11-25] MEDS ORDERED: FLONASE NASAL S16 GM NS (16:10)
--- NOTE | 2020-11-25 16:21 | NUR ---
Order Runner contacted the patient's , Beena regarding OP PT/OT/ST to discuss options. Beena chose [facility] on [address]. Beena prefers afternoon appointments. SW contacted [facility] to set up appointments. ST evaluation is set up for December 11 at 12:45 PM. PT/OT evaluations set up for December 05 at 2:00 and 3:00 PM. OLENA collaborated the above information with the patient's nurse.
--- NOTE | 2020-11-25 16:49 | NUR ---
Pt has rested off and on this afternoon. Doing well, denies pain at this time and is anticipating dishcarge tomorrow. Updated with appointmetns made and will be here until around lunch time tomorrow. Will give bedside shift report to nightshift nruse who will resume care.
[2020-11-25 17:54] VITALS: BP 121/75; PULSE 72; TEMP 99.5
--- NOTE | 2020-11-26 00:09 | NUR ---
Patient assessed around 2019. Alert and oriented x 4, and able to make needs known. Denies having pain and discomfort at this time. Denies SOB and dyspnea. LS CTA. Respirations even and unlabored. HRR. Capillary refill less than 3 seconds. Non-tenting skin turgor. BSAx4. Abdomen soft and non-tender. 1+ edema LLE. Patient voices no questions, needs, or concerns at this time. Resting in bed with call light within reach.
[2020-11-26 06:02] VITALS: BP 125/83; PULSE 74; TEMP 97.3
--- NOTE | 2020-11-26 06:16 | NUR ---
Patient denied having pain and discomfort this shift. Voices no questions, needs, or concerns at this time. Resting in bed with call light within reach.
--- NOTE | 2020-11-26 10:10 | NUR ---
Patient resting in bed, call light in reach and independent in room. Patient was seen by Dr. Engel for discharge, see discharge notes. Patient denies questions at this time.
--- NOTE | 2020-11-26 10:15 | NUR ---
The patient to discharge home today, 11/26 with his Beena and OP PT at [facility] [place]. The patient will not be needing OP ST/OT. Casting Machine Operator cancelled ST/OT appointments for the patient. SW to fax discharge orders to [facility]. SW met with the patient to present the IM form. The patient verbalized understanding and gave this SW permission to sign the form. A copy was provided to the patient and the original was placed in the chart. There are no additional needs.
[2020-11-26] MEDS ORDERED: PROTONIX 40MG T40 MG PO (14:22)
--- NOTE | 2020-11-26 16:03 | NUR ---
Patient Health Summary, Discharge Summary and Home Meds printed and reviewed with patient and . Stressed importance of follow up appointments. Reviewed discharge meds and called in prescription for Lasix per Dr. Engel. Appointment with Cardiology was scheduled for 11/27/20 at 3:15 pm not 11/17/20 as was recorded in discharge appointments. Patient will be going to PT not OT as was noted in discharge instructions. Patient was notified of those changes and voiced understanding. Belongings gathered by Festus including glasses and other personal items. Patient transported via wheelchair by Festus and RN/Nancy and seatbelted for ride home with . Patient and denied questions.
== END 2020-11-26 13:30 | disposition home or self-care (01) | DRG 947 ==
PROVIDERS: ADMIT Internal Medicine
DX: R53.81 Other malaise (principal); R57.1 Hypovolemic shock; K92.1 Melena; E87.3 Alkalosis; I48.20 Chronic atrial fibrillation, unspecified; I50.20 Unspecified systolic (congestive) heart failure; E87.1 Hypo-osmolality and hyponatremia; I42.9 Cardiomyopathy, unspecified; S70.12XD Contusion of left thigh, subsequent encounter; M19.90 Unspecified osteoarthritis, unspecified site; B95.61 Methicillin susceptible Staphylococcus aureus infection as the cause of diseases classified elsewhere; I08.1 Rheumatic disorders of both mitral and tricuspid valves; E11.9 Type 2 diabetes mellitus without complications; E87.6 Hypokalemia; E27.9 Disorder of adrenal gland, unspecified; D64.9 Anemia, unspecified; S30.0XXD Contusion of lower back and pelvis, subsequent encounter; H53.2 Diplopia; I11.0 Hypertensive heart disease with heart failure; J30.9 Allergic rhinitis, unspecified; M62.89 Other specified disorders of muscle; F17.210 Nicotine dependence, cigarettes, uncomplicated; E78.5 Hyperlipidemia, unspecified; R26.89 Other abnormalities of gait and mobility; R42 Dizziness and giddiness; R29.6 Repeated falls; Z79.891 Long term (current) use of opiate analgesic; Z79.84 Long term (current) use of oral hypoglycemic drugs; Z79.82 Long term (current) use of aspirin; Z73.6 Limitation of activities due to disability; Z96.642 Presence of left artificial hip joint
CPT/HCPCS: 99222-AI; 99231-AI; 99232-AI; 99239

== ENCOUNTER 2021-06-04 13:58 | Inpatient (IN) | payer MEDICARE, OTHER ==
[~2021-06-04] VITALS: Ht 185.4 cm; Wt 106.0 kg
[~2021-06-04 13:58] MED LIST changes: +FLONASE NASAL S16 GM NS; +ZYRTEC 10MG10 MG PO
[2021-06-04 15:09] LABS: BASO # 0.1 K/mm3 (0.0-0.2); EOS # 0.1 K/mm3 (0.0-0.7); GRAN # 7.5 K/mm3 (1.4-6.5); GRAN % 71.7 % (42.2-75.2); HEMATOCRIT 38.2 % (42.0-52.0); HEMOGLOBIN 12.7 g/dl (13.5-18.0); LYMPH # 1.4 K/mm3 (1.2-3.4); LYMPH % 13.1 % (20.0-51.0); MEAN CELL VOLUME 99 fl (80.0-100.0); MEAN CORPUSCULAR HEMOGLOBIN 33 pg (27-31); MEAN CORPUSCULAR HGB CONC 33 g/dl (33.0-37.0); MEAN PLATELET VOLUME 9.4 fl (7.4-10.4); MONO # 1.3 K/mm3 (0.1-0.6); MONO % 12.1 % (1.7-9.3); PLATELET COUNT 330 K/mm3 (130-400); RED BLOOD COUNT 3.86 M/mm3 (4.20-5.60); REDCELL DISTRIBUTION WIDTH-CV 14.2 % (11.5-14.5)
[2021-06-04 15:13] LABS: INR 1.2 (0.8-3.0); PROTHROMBIN TIME 13.5 SECONDS (9.7-12.8)
[2021-06-04 15:15] LABS: PARTIAL THROMBOPLASTIN TIME 25.8 SECONDS (26.0-37.0)
[2021-06-04 15:20] LABS: CREATININE, serum 0.82 mg/dL (0.72-1.25); POTASSIUM 3.7 mmol/L (3.5-4.5)
[2021-06-04 15:38] LABS: COLLECTION METHOD IN
[2021-06-04 15:51] LABS: MUCOUS Present (NOT PRESENT); PH 6 (5-8); SQUAMOUS EPITHELIAL 0-2 /hpf (0-10); URINE APPEARANCE Cloudy (CLEAR/HAZY); URINE BACTERIA Rare /hpf (NONE SEEN); URINE BILIRUBIN Negative (NEGATIVE); URINE BLOOD Negative (NEGATIVE); URINE CALCIUM OXALATE CRYSTAL Present (NOT PRESENT); URINE COLOR Amber (YELLOW); URINE GLUCOSE Negative (NEGATIVE); URINE KETONE Negative (NEGATIVE); URINE LEUKOCYTE ESTERASE 2+ (NEGATIVE); URINE NITRATE Negative (NEGATIVE); URINE PROTEIN(semi-quant) 1+ (NEGATIVE); URINE UROBILINOGEN >=4.0 (NEGATIVE); URINE WBC >50 /hpf (0-2)
[2021-06-04] MEDS ORDERED: TOPROL XL 25MG25 MG PO (17:59)
[2021-06-04] MEDS ORDERED: ALDACTONE 25MG25 M1 PO (18:01)
[2021-06-04] MEDS ORDERED: DESYREL 100MG100 MG PO (18:03)
[2021-06-04] MEDS ORDERED: CELEBREX 200MG200 MG PO (18:04)
--- NOTE | 2021-06-04 19:19 | NUR ---
Patient admitted to room 345. Medication list updated & made aware of corrections made to med list & medication that were ordered. Consults called to Jony Thomson & . They will see patient in AM. Patient dinner ordered & to be NPO at midnight. Int x2. Dr. Francis called to get orders for pain medication. Scds ble & erasmo to Let leg. admission intake complted & Farshad aware phyical assessment was not completed yet. I did speak to patient and gave her an update.Farshad to resume cares
--- NOTE | 2021-06-04 19:45 | NUR ---
Pt. sitting up in bed. Pt. is A&OX3, assessment complete. INT to lt. ac and rt. ac patent. Pt. reports pain at a 6 on pain scale, will give pain meds per orders. Pt. denies further needs, call light within reach.
[2021-06-04 19:55] VITALS: BP 116/77; PULSE 84; TEMP 98.8
[2021-06-04 23:30] VITALS: BP 122/82; PULSE 81; TEMP 97.9
[2021-06-05] VITALS (9 sets, daily range): BP systolic 112–152; BP diastolic 69–91; PULSE 75–91; TEMP 97.1–98
[2021-06-05 06:20] LABS: BASO # 0.1 K/mm3 (0.0-0.2); BASO % 1.3 % (0.0-2.0); EOS # 0.2 K/mm3 (0.0-0.7); EOS % 2.7 % (0.0-4.0); GRAN # 5.5 K/mm3 (1.4-6.5); GRAN % 63.8 % (42.2-75.2); HEMOGLOBIN 11.4 g/dl (13.5-18.0); LYMPH # 1.6 K/mm3 (1.2-3.4); LYMPH % 18.3 % (20.0-51.0); MEAN CELL VOLUME 95 fl (80.0-100.0); MEAN CORPUSCULAR HEMOGLOBIN 33 pg (27-31); MEAN CORPUSCULAR HGB CONC 34 g/dl (33.0-37.0); MEAN PLATELET VOLUME 9.7 fl (7.4-10.4); MONO # 1.1 K/mm3 (0.1-0.6); MONO % 12.7 % (1.7-9.3); PLATELET COUNT 333 K/mm3 (130-400); REDCELL DISTRIBUTION WIDTH-CV 14.1 % (11.5-14.5)
[2021-06-05 06:25] LABS: HEMATOCRIT 33.3 % (42.0-52.0)
[2021-06-05 06:40] LABS: ALBUMIN 2.6 gm/dL (3.4-4.8); CALCIUM 8.6 mg/dL (8.4-10.2); CREATININE, serum 0.81 mg/dL (0.72-1.25); PHOSPHOROUS 3.6 mg/dL (2.3-4.7); POTASSIUM 3.8 mmol/L (3.5-4.5)
--- NOTE | 2021-06-05 07:00 | NUR ---
Report received from MAYCO Yen. Pt in bed resting with eyes clsod, will continue to monitor.
--- NOTE | 2021-06-05 08:51 | NUR ---
OLENA met with the patient to discuss discharge plan. The patient lives in [place] with his , Beena (ph#[phone]). He reports independence with ADLs before the fall and has a cane and walker. The patient's PCP is Dr. Myke Cid and he receives his medications from [facility] in . He reports no difficulties obtaining his meds. The patient does not have a DPOA-HC in EMR, but he believes that he does have one completed and that he designated his . The patient has a right hip fracture. OLENA discussed post-acute rehab upon discharge. The patient reports that he would like to skip rehab and just return home. The patient is awaiting medical clearance for surgery. Will await PT/OT recs. *Discharge plan: Awaiting therapy's recs*
--- NOTE | 2021-06-05 11:32 | NUR ---
Assessment charted. Pt in bed resting, PRN pain pills given for pain of 10/10 to R hip, ice applied as well per request. Pt requesting rodriguez now, will provide. PT appears flushed, called hospitalist this am regarding urine results, no IVF, recieved orders from IV ATB and IVF. IV to L and R AC. Bedrest until surgery, called US tech for echo order and she will provide. Denies needs, will continue to monitor.
--- NOTE | 2021-06-05 13:53 | NUR ---
Called per pt request to notify of surgery time, she states she is not sure she will make it but will call his sisters to relay information. Islas catheter placed, pt toleratd well, will continu to monitor.
--- NOTE | 2021-06-05 17:21 | NUR ---
Pt remains in OR at this time with OR team. Will await return and give report to nightshift nurse who will resume care.
--- NOTE | 2021-06-05 19:40 | NUR ---
ADMITTED TO ROOM 345 POST OP RT HIP GAMMA NAIL. A&OX4. REORIENTED TO ROOM. VSS. SEE JENNIFER CASTANEDA PAIN MEDS GIVEN.
--- NOTE | 2021-06-05 21:18 | NUR ---
PT RESTING QUIETLY AT THIS TIME. NO EVIDENCE OF PAIN.
[2021-06-06] VITALS (8 sets, daily range): BP systolic 114–137; BP diastolic 68–83; PULSE 74–93; TEMP 97.2–98.1
[2021-06-06 07:20] LABS: BASO % 0.3 % (0.0-2.0); GRAN # 9.5 K/mm3 (1.4-6.5); GRAN % 82.3 % (42.2-75.2); HEMOGLOBIN 11.6 g/dl (13.5-18.0); LYMPH # 0.8 K/mm3 (1.2-3.4); LYMPH % 7.1 % (20.0-51.0); MEAN CELL VOLUME 97 fl (80.0-100.0); MEAN CORPUSCULAR HEMOGLOBIN 33 pg (27-31); MEAN CORPUSCULAR HGB CONC 34 g/dl (33.0-37.0); MEAN PLATELET VOLUME 9.7 fl (7.4-10.4); MONO # 1.1 K/mm3 (0.1-0.6); MONO % 9.5 % (1.7-9.3); PLATELET COUNT 361 K/mm3 (130-400); RED BLOOD COUNT 3.53 M/mm3 (4.20-5.60)
[2021-06-06 07:23] LABS: HEMATOCRIT 34.2 % (42.0-52.0)
[2021-06-06 07:52] LABS: ALBUMIN 2.5 gm/dL (3.4-4.8); CALCIUM 8.4 mg/dL (8.4-10.2); CREATININE, serum 0.76 mg/dL (0.72-1.25); PHOSPHOROUS 4.5 mg/dL (2.3-4.7); POTASSIUM 4.5 mmol/L (3.5-4.5)
--- NOTE | 2021-06-06 10:56 | NUR ---
SW attempted to speak with the patient regarding post scute rehab. Patient verbalizes that he does not want to go to [place] but would like for me to reach out to his Beena "the boss" to talk about options. Attempt made to speak with Beena but was unsuccessful. Message left.
--- NOTE | 2021-06-06 13:01 | NUR ---
Islas catheter was removed mid morning. Pt has not voided yet, but is thankful it is out. Pt is currently eating lunch. He did state that the pain medication did help. Ice pack to right hip, no other needs verbalized
--- NOTE | 2021-06-06 20:15 | NUR ---
Pt. sitting up in bed. Pt. is A&OX3, shift assessment complete. INT to rt. ac patent. Pt. reports pain at a 5 on pain scale and request pain meds. Will give per orders. Pt. denies further needs, call light within reach.
[2021-06-07 03:34] VITALS: BP 104/67; PULSE 87; TEMP 97.9
[2021-06-07 06:59] LABS: BASO # 0.1 K/mm3 (0.0-0.2); BASO % 1.2 % (0.0-2.0); EOS # 0.2 K/mm3 (0.0-0.7); EOS % 1.8 % (0.0-4.0); GRAN # 8.2 K/mm3 (1.4-6.5); GRAN % 70.6 % (42.2-75.2); HEMOGLOBIN 11.2 g/dl (13.5-18.0); LYMPH # 1.4 K/mm3 (1.2-3.4); LYMPH % 12.3 % (20.0-51.0); MEAN CELL VOLUME 97 fl (80.0-100.0); MEAN CORPUSCULAR HEMOGLOBIN 33 pg (27-31); MEAN CORPUSCULAR HGB CONC 34 g/dl (33.0-37.0); MEAN PLATELET VOLUME 9.6 fl (7.4-10.4); MONO # 1.5 K/mm3 (0.1-0.6); MONO % 12.8 % (1.7-9.3); PLATELET COUNT 337 K/mm3 (130-400); RED BLOOD COUNT 3.41 M/mm3 (4.20-5.60); REDCELL DISTRIBUTION WIDTH-CV 14.6 % (11.5-14.5)
[2021-06-07 07:23] LABS: HEMATOCRIT 32.9 % (42.0-52.0)
[2021-06-07 07:27] LABS: ALBUMIN 2.5 gm/dL (3.4-4.8); CALCIUM 8.4 mg/dL (8.4-10.2); CREATININE, serum 0.79 mg/dL (0.72-1.25); PHOSPHOROUS 3.3 mg/dL (2.3-4.7)
[2021-06-07 08:48] VITALS: BP 123/84; PULSE 72; TEMP 97.4
--- NOTE | 2021-06-07 08:50 | NUR ---
Patient laying in bed upon entering the room. Patient is A&Ox4 and very pleasant. PT will be working with the patient here shortly. Patient on contact precautions for hx of MRSA. Patient does not have any complaints or concerns at this time.
[2021-06-07 11:19] VITALS: BP 113/74; PULSE 92; TEMP 97.9
--- NOTE | 2021-06-07 12:03 | NUR ---
Pt resting in bed at this time. He does report that he did sit up in the chair for breakfast. No needs verbalized. He did recently have a pain pill, pain tolerable at this time
[2021-06-07 16:40] VITALS: BP 111/68; PULSE 77; TEMP 98.1
--- NOTE | 2021-06-07 17:00 | NUR ---
Pt has continued to do well. Oral pain medication recently given. Pt stated he is overall feeling okay, just bored. Assisted him with ordering some dinner and his breakfast tomorrow. Fresh ice pack applied to his hip and fresh ice water given. Call light within reach
[2021-06-07 19:01] VITALS: BP 114/61; PULSE 67; TEMP 98
--- NOTE | 2021-06-07 21:30 | NUR ---
Pt. laying in bed. Pt. is A&OX3, assessment complete. INT to rt. ac patent. Pt. reports pain to rt. leg at a 7 on pain scale, will give meds per orders. Dressings to rt. leg CDI. Pt. denies further needs, call light within reach.
[2021-06-07] MEDS ORDERED: ASPI325T6 PO (22:48)
[2021-06-07] MEDS ORDERED: ASPIRIN 81M81 MG/TA2 PO (22:50)
[2021-06-07] MEDS ORDERED: NORCO 325 MG-51 TAB PO (22:51)
[2021-06-08 02:54] VITALS: BP 122/72; PULSE 85; TEMP 97.9
[2021-06-08 07:07] LABS: HEMOGLOBIN 10.4 g/dl (13.5-18.0); MEAN CELL VOLUME 96 fl (80.0-100.0); MEAN CORPUSCULAR HEMOGLOBIN 33 pg (27-31); MEAN CORPUSCULAR HGB CONC 34 g/dl (33.0-37.0); MEAN PLATELET VOLUME 9.7 fl (7.4-10.4); PLATELET COUNT 320 K/mm3 (130-400); RED BLOOD COUNT 3.14 M/mm3 (4.20-5.60); REDCELL DISTRIBUTION WIDTH-CV 14.8 % (11.5-14.5)
[2021-06-08 07:12] LABS: HEMATOCRIT 30.2 % (42.0-52.0)
[2021-06-08 07:19] LABS: ALBUMIN 2.4 gm/dL (3.4-4.8); CALCIUM 8.1 mg/dL (8.4-10.2); CREATININE, serum 0.72 mg/dL (0.72-1.25); POTASSIUM 3.9 mmol/L (3.5-4.5)
[2021-06-08 08:45] VITALS: BP 135/68; PULSE 83; TEMP 98
[2021-06-08 09:48] LABS: NEUTROPHILS 77 % (42.0-75.2); PLATELET ESTIMATE NORMAL (NORMAL); POIKILOCYTOSIS 1+
[2021-06-08 09:49] LABS: LYMPHOCYTE 17 % (20.0-51.0)
--- NOTE | 2021-06-08 11:12 | NUR ---
Patient alert and oriented, answers questions appropriately. See assessment. Right hip incision with dressing CDI. FWB. Pulses palpable to BLE, sensation intact, no c/o numbness or tingling. SCDs and TEDs in plce. Uses walker and assist x1 for ambulation. PT/OT in place. Voiding adequate amounts, bowel movement this morning. Patient voices preference for [facility] for rehab, states has been an [facility] patient in the past and was happy with his recovery. No other c/o at this time.
[2021-06-08 12:23] VITALS: BP 138/72; PULSE 70; TEMP 98.1
--- NOTE | 2021-06-08 12:51 | NUR ---
Dressing changed to RLE incision sites, gauze and tegaderm applied. Incisions to RLE with edges well approximated, no redness or drainage noted. Tolerated well.
[2021-06-08 15:41] VITALS: BP 128/52; PULSE 83; TEMP 98.1
[2021-06-08 19:10] VITALS: BP 132/91; PULSE 82; TEMP 97.8
[2021-06-09 03:29] VITALS: BP 135/79; PULSE 76; TEMP 97.6
[2021-06-09 06:34] LABS: BASO # 0.1 K/mm3 (0.0-0.2); BASO % 0.6 % (0.0-2.0); EOS # 0.2 K/mm3 (0.0-0.7); EOS % 1.3 % (0.0-4.0); GRAN # 10.1 K/mm3 (1.4-6.5); GRAN % 78.1 % (42.2-75.2); LYMPH % 7.4 % (20.0-51.0); MEAN CELL VOLUME 97 fl (80.0-100.0); MEAN CORPUSCULAR HEMOGLOBIN 33 pg (27-31); MEAN CORPUSCULAR HGB CONC 35 g/dl (33.0-37.0); MEAN PLATELET VOLUME 9.3 fl (7.4-10.4); MONO # 1.5 K/mm3 (0.1-0.6); MONO % 11.4 % (1.7-9.3); PLATELET COUNT 322 K/mm3 (130-400); RED BLOOD COUNT 3.29 M/mm3 (4.20-5.60); REDCELL DISTRIBUTION WIDTH-CV 15.1 % (11.5-14.5)
[2021-06-09 06:53] LABS: HEMATOCRIT 31.8 % (42.0-52.0)
[2021-06-09 07:04] LABS: ALBUMIN 2.5 gm/dL (3.4-4.8); CALCIUM 8.3 mg/dL (8.4-10.2); CREATININE, serum 0.74 mg/dL (0.72-1.25); MAGNESIUM 1.9 mg/dL (1.6-2.6); PHOSPHOROUS 3.3 mg/dL (2.3-4.7); POTASSIUM 4.4 mmol/L (3.5-4.5)
[2021-06-09 07:38] VITALS: BP 137/64; PULSE 87; TEMP 98.2
--- NOTE | 2021-06-09 09:47 | NUR ---
Per physician team, patient would like to go to [facility]. If he cannot get into [facility], then he would like to go home with outpatient PT. Message left for Chelsea with [facility].
[2021-06-09 11:39] VITALS: BP 142/90; PULSE 90; TEMP 98
--- NOTE | 2021-06-09 12:00 | NUR ---
Patient alert and oriented, answers questions appropriately. See assessment. RLE incision with gauze CDI. SCDs and TEDs in place. Sensation intact to RLE, no c/o numbness or tingling. Uses FWW and gait belt for ambulation. FWB. Ambulates to bathroom and in hallways with assist x1. No c/o at this time.
--- NOTE | 2021-06-09 14:33 | NUR ---
Vandana with [facility] accepts patient. Transfer planned for today. Attempt made to contact the patient's Beena and was unsuccessful. Spoke with patient who agrees to transfer and is "very happy" with acceptance. According to Vandana in [facility], she has spoken with the patient's and will be up later today to bring the patient's belongings to him.
[2021-06-09 15:55] VITALS: BP 142/90; PULSE 90; TEMP 98
--- NOTE | 2021-06-09 16:16 | NUR ---
Patient tranfered to [facility] via wheelchair at 1615. Paperwork sent. This nurse will resume patient care upon transfer.
== END 2021-06-09 16:15 | DRG 481 ==
LOC: COL.ER 13:58 → SURG 15:05
PROVIDERS: Emergency Medicine; Orthopaedic Surgery; ADMIT Internal Medicine
PROC: 0QS634Z Reposition Right Upper Femur with Internal Fixation Device, Percutaneous Approach (ICD-10-PCS; principal; 2021-06-05 15:00)
DX: S72.141A Displaced intertrochanteric fracture of right femur, initial encounter for closed fracture (principal); I48.20 Chronic atrial fibrillation, unspecified; I50.22 Chronic systolic (congestive) heart failure; N39.0 Urinary tract infection, site not specified; E78.5 Hyperlipidemia, unspecified; I11.0 Hypertensive heart disease with heart failure; E11.9 Type 2 diabetes mellitus without complications; W10.9XXA Fall (on) (from) unspecified stairs and steps, initial encounter; D64.9 Anemia, unspecified; N28.9 Disorder of kidney and ureter, unspecified; I07.1 Rheumatic tricuspid insufficiency; Z20.822 Contact with and (suspected) exposure to COVID-19; Z96.642 Presence of left artificial hip joint; Y93.89 Activity, other specified; Y92.008 Other place in unspecified non-institutional (private) residence as the place of occurrence of the external cause; Z79.84 Long term (current) use of oral hypoglycemic drugs; Z79.82 Long term (current) use of aspirin; Z87.891 Personal history of nicotine dependence; Z23 Encounter for immunization
CPT/HCPCS: 99223-AI; 99232-AI; 99233-AI; 99239; A4314; C1713; C1769; J0690; J0696; J2270; J3010; J7030

== ENCOUNTER 2021-06-09 14:35 | Inpatient (IN) | payer MEDICARE, OTHER ==
[~2021-06-09] VITALS: Ht 185.4 cm; Wt 107.7 kg
[~2021-06-09 14:35] MED LIST changes: +ASPI325T6 PO; +DESYREL 100MG100 MG PO; +NORCO 325 MG-51 TAB PO
[2021-06-09 16:48] VITALS: BP 125/77; PULSE 89; TEMP 98.2
[2021-06-09 17:04] VITALS: BP 125/77; PULSE 89
[2021-06-09 18:00] VITALS: BP 125/77; PULSE 89; TEMP 98.2
[2021-06-10 04:41] VITALS: BP 124/71; PULSE 77; TEMP 97.9
--- NOTE | 2021-06-10 06:57 | NUR ---
bedside shift report received from MAYCO King
--- NOTE | 2021-06-10 07:20 | NUR ---
appears to be sleeping, awakened for breakfast, full assessment completed, see interventions for further info, medicated with hydrocodone for c/os pain4/10 and in anticipation of therapy, denies needs
--- NOTE | 2021-06-10 10:00 | NUR ---
in bed and appears to be sleeping, resp quiet and easy
--- NOTE | 2021-06-10 11:57 | NUR ---
returned from therapy, c/o pain 12/21, medicated with roxicodone 5mg
--- NOTE | 2021-06-10 13:44 | NUR ---
physical therapy in to work with patient, states he is still having pain, will check when therapy is completd
--- NOTE | 2021-06-10 14:20 | NUR ---
is back in bed after therapy, medicated with tylenol 1000mg and scheduled gabapentin,
--- NOTE | 2021-06-10 14:36 | NUR ---
Welcomed pt to the Rehab unit. Explained the rehab process & goals. Provided pt w/ Welcome packet. Completed SW assessment w/ pt. He is alert & oriented. He is able to communicate his needs & wants to others. He has his own teeth which are in poor condition, vision & hearing are w/in normal limits. He lives at home w/ his , in a 1 story home w/ basement. There are steps to enter but he has a ramp. He is in the process of getting an elevator for the basement. The bathroom has a walk-in shower w/ door, grab bars, & hand held shower head. The toilet is raised. Pt reports walking w/a device & was independent w/ his self care. He reports his does most of the cooking, cleaning, laundry, & shopping, but he drives, does his medication management, finance management, & works on the farm. He has r/walker & cane available. Pharmacy: [facility] in [place] & reports he has no concerns or issues w/ affording his medications. However, after 06/19/21, he reports it will be changing to mail orderl. PCP: Dr. Jose Roberto CONTE: reports having DPOA paperwork, which has his , Beena, designated as his field representative/health education. Pt had no questions/concerns at this time about his rehab stay. SW will continue to follow to provide support & assist w/ d/c planning.
--- NOTE | 2021-06-10 15:20 | NUR ---
in bed and appears to be sleeping, eyes closed, resp quiet and easy
--- NOTE | 2021-06-10 16:21 | NUR ---
appears to continue to sleep, resp quiet and easy
--- NOTE | 2021-06-10 17:30 | NUR ---
awake and sitting up and has had supper, medicated with roxicodone 5mg for c/os pain
[2021-06-10 18:00] VITALS: BP 121/73; PULSE 86; TEMP 98.4
--- NOTE | 2021-06-10 18:37 | NUR ---
RECEIVED CHANGE OF SHIFT REPORT FROM DAY SHIFT RN.
--- NOTE | 2021-06-10 18:40 | NUR ---
"bedside shift report given to Radha, |RN"
--- NOTE | 2021-06-11 02:48 | NUR ---
PATIENT RESTING, BED ALARM ON WHEN IN BED. CALL LIGHT WITHIN REACH. DOES NOT WAKE WHEN STAFF ENTER ROOM ON ROUNDS CURRENTLY. BREATHING NONLABORED AND EVEN.
[2021-06-11 05:32] VITALS: BP 113/70; PULSE 80; TEMP 98.1
--- NOTE | 2021-06-11 06:30 | NUR ---
Report received from MAYCO Lim. Patient is sleeping in bed. Call light and bedside table are within reach. Will continue to monitor patient throughout shift.
--- NOTE | 2021-06-11 07:11 | NUR ---
CHANGE OF SHIFT REPORT GIVEN TO DAY SHIFT SULTANA MAO.
--- NOTE | 2021-06-11 14:36 | NUR ---
Reviewed the Team conference notes w/ pt. He stated he understood & agreed w/ current level of functioning. Informed of tentative d/c for 06/20/21, to home w/ home health. Pt seemed fine w/ this plan. Did inquire about doing a pt/family meeting next week. He stated he would talk w/ his jacob but asked that SW call him tomorrow.
--- NOTE | 2021-06-11 18:00 | NUR ---
Patient was upset with this nurse because he said this nurse was avoiding him because he was in isolation and this nurse explained cluster care to the patient. Patient also states he does not call for assistance because he feels like the nurses do not want to be bothered. This nurse explained to him to still call because it is our job.
[2021-06-11 18:29] VITALS: BP 121/68; PULSE 88; TEMP 98
--- NOTE | 2021-06-11 19:00 | NUR ---
RECEIVED CHANGE OF SHIFT REPORT FROM DAY SHIFT RN. RESTING IN BED, EXIT ALARM ON WITH CALL LIGHT WITHIN REACH.
[2021-06-12 05:35] VITALS: BP 117/63; PULSE 77; TEMP 97.9
--- NOTE | 2021-06-12 06:43 | NUR ---
shift report received from MAYCO Garcia
--- NOTE | 2021-06-12 07:15 | NUR ---
appears to be sleeping, awakened for breakfast, full assessment completed, see interventions for further info, denies needs at this time
--- NOTE | 2021-06-12 08:21 | NUR ---
occupational therapy in to work with patient
--- NOTE | 2021-06-12 09:15 | NUR ---
occupational therapy in working with patient, gauze dressing removed from proximal end of right hip, incision is CD&I with no drainage, left open to air
--- NOTE | 2021-06-12 11:49 | NUR ---
Attempted to contact pt's , Beena. She was not available so left a message to call SW back.
--- NOTE | 2021-06-12 12:15 | NUR ---
appears to be sleeping, in bed with eyes closed, resp quiet and easy
--- NOTE | 2021-06-12 13:18 | NUR ---
Admission QIM scores were reviewed by the team. Code of 4 chosen for oral hygiene was determined by team discussion to be the most usual performance for this patient during the assessment period. Code of 3 chosen for toilet hygiene was determined by team discussion to be the most usual performance for this patient during the assessment period. Code of 1 chosen for putting on/taking off footwear was determined by team discussion to be the most usual performance for this patient during the assessment period. Code of 3 chosen for sit to lying was determined by team discussion to be the most usual performance before interventions for this patient during the assessment period. Code of 4 chosen for lying to sitting on side of bed was determined by team discussion to be the most usual performance for this patient during the assessment period. Code of 3 for sit to stand was determined by team discussion to be the most usual performance for this patient during the assessment period. Code of 3 for chair/bed to chair transfers was determined by team discussion to be the most usual performance for this patient during the assessment period.--Vandana Lubin, PD
--- NOTE | 2021-06-12 14:05 | NUR ---
resting in bed after therapy, medicated with roxicodne 5mg 1 tab for c/os pain, is ready to take a nap
--- NOTE | 2021-06-12 15:25 | NUR ---
in bed and appears to be sleeping, eyes closed, resp quiet and easy
--- NOTE | 2021-06-12 15:59 | NUR ---
continues to sleep
--- NOTE | 2021-06-12 17:17 | NUR ---
sitting up in bed eating supper
--- NOTE | 2021-06-12 17:42 | NUR ---
report given to MAYCO Garcia
--- NOTE | 2021-06-12 17:59 | NUR ---
CHANGE OF SHIFT REPORT GIVEN TO DAY SHIFT FLORIDA MAO
[2021-06-12 18:00] VITALS: BP 112/62; PULSE 86; TEMP 99.5
--- NOTE | 2021-06-12 19:00 | NUR ---
RECEIVED CHANGE OF SHIFT REPORT FROM DAY SHIFT RN.
[2021-06-13 06:05] VITALS: BP 127/64; PULSE 80; TEMP 98
--- NOTE | 2021-06-13 06:57 | NUR ---
Report received from MAYCO Bang. Patient is sleeping in bed. Call light and bedside table are within reach. Will continue to monitor patient throughout shift.
--- NOTE | 2021-06-13 07:06 | NUR ---
CHANGE OF SHIFT REPORT GIVEN TO DAY SHIFT SULTANA MAO.
[2021-06-13 16:48] VITALS: BP 114/68; PULSE 77; TEMP 97.9
[2021-06-14 05:44] VITALS: BP 107/64; PULSE 77; TEMP 98.2
--- NOTE | 2021-06-14 06:48 | NUR ---
Report received from MAYCO Martinez. Patient is sleeping in bed. Call light and bedside table are within reach. Will continue to monitor patient throughout shift.
[2021-06-14 17:25] VITALS: BP 112/70; PULSE 80; TEMP 98.7
--- NOTE | 2021-06-15 05:22 | NUR ---
RESTING QUIETLY. NORCO FOR PAIN. ICE IN USE TO LLE. GAUZE TO LLE CD&I.
[2021-06-15 05:28] VITALS: BP 110/68; PULSE 77; TEMP 98.2
--- NOTE | 2021-06-15 07:45 | NUR ---
awake and sitting up in bed, has had breakfast and tolerated well, full assessment completed, see interventions for further info, denies needs at this time
--- NOTE | 2021-06-15 09:45 | NUR ---
appears to be sleeping, in bed with eyes closed, resp quiet and easy
--- NOTE | 2021-06-15 11:30 | NUR ---
continues to sleep
--- NOTE | 2021-06-15 14:00 | NUR ---
awake resting in bed, provided scheduled meds, denies needs
[2021-06-15 16:23] VITALS: BP 134/76; PULSE 89; TEMP 98.5
--- NOTE | 2021-06-15 16:29 | NUR ---
assisted up to bathroom and was able to have hard formed bowel movement, then ambulated back to bed and positioned for comfort
--- NOTE | 2021-06-15 18:05 | NUR ---
called staff to room and had been incontinent of small BM, during care he expelled another large soft formed stool, hygien provided
--- NOTE | 2021-06-15 18:33 | NUR ---
shift report given to MAYCO Garcia
--- NOTE | 2021-06-15 19:15 | NUR ---
RECEIVED CHANGE OF SHIFT REPORT FROM DAY SHIFT RN.
[2021-06-16 04:59] VITALS: BP 115/70; PULSE 72; TEMP 98.2
--- NOTE | 2021-06-16 07:40 | NUR ---
CHANGE OF SHIFT REPORT GIVEN TO DAY SHIFT RNOCTAVIANO.
--- NOTE | 2021-06-16 08:24 | NUR ---
Pt assessment complete. Pt called desk asking for pain pill, reminded pt of administration of pain medication an hour ago. Pt responded that he couldn't remember when it was. Pt expresses many frustrations this am, support given. Pt encouraged and is able to put on Voltaren gel independently to leg. Discussed POC with patient. OT in to work with him at this time.
--- NOTE | 2021-06-16 17:46 | NUR ---
Pt in bed between therapies. Continued to have intermittent pain to R Leg and Bilateral knees. PRN pain medications and scheduled pain cream utilized. Offered to walk with patient or assist into the recliner, pt refused this afternoon. States he has been using leg band to stretch and move RLE. HERNESTO hose in place to BLE. No needs at this time, sitting up in bed eating dinner. Call light within reach.
[2021-06-16 17:47] VITALS: BP 115/66; PULSE 76; TEMP 97.9
--- NOTE | 2021-06-16 19:45 | NUR ---
Repor treceived, assumed care for night shift supervisor. Assessment complete. A&Ox4. Denies shortenss of breath/nausea. Rating pain 7/10 to right lower extremity-described as throbbing-norco given per dr order. VS have remained stable. SCD/TEDs bilat-TEDS removed at this time per patient request. Plan of care discussed for this shift to include pain control/calling for questions/concerns. Call light in reach. Will monitor.
[2021-06-17 05:10] VITALS: BP 110/66; PULSE 67; TEMP 98
[2021-06-17 05:13] VITALS: BP 136/61; PULSE 72; TEMP 97.9
--- NOTE | 2021-06-17 05:19 | NUR ---
Called with c/o pain to right hip/bilat knees-rating pain 9/10 on pain scale-described as constant throbbing. Concho given per dr cornejo.
--- NOTE | 2021-06-17 07:01 | NUR ---
Report received from MAYCO Amaya. Patient is sleeping in bed. Call light and bedside table are within reach. Will continue to monitor patient throughout shift.
--- NOTE | 2021-06-17 13:20 | NUR ---
OLENA attended family meeting with [facility] director, PT, OT and physician at patient's bedside. Patient's Beena attends via phone. All questions answered and plan remains to discharge home on Tuesday 06/20. OLENA met with patient post meeting who states he has never had HH services before and wishes that i speak with his on which agency. Patient is anxious/excited to get home. Education is provided about what HH services would look like. OT recommends that the patient go home with a HH aid.
--- NOTE | 2021-06-17 13:28 | NUR ---
Attempt made to contact the patients to discuss HH agencies and was unsuccessful. Message left for Beena to call me.
--- NOTE | 2021-06-17 15:00 | NUR ---
Patient has completed all therapies for the day. Call light and bedside table are within reach.
[2021-06-17 18:00] VITALS: BP 104/60; PULSE 78; TEMP 98.2
--- NOTE | 2021-06-17 21:00 | NUR ---
Pt. sitting up in bed. Pt. is A&OX3, assessment complete. Dressings to rt. leg CDI. Pt. reports pain at a 4 on painscale, giving pain meds per orders. Pt. denies further needs, call light within reach.
[2021-06-18 05:02] VITALS: BP 113/76; PULSE 67; TEMP 97.5
--- NOTE | 2021-06-18 06:55 | NUR ---
Patient is sleeping in bed. Call light and bedside table are within reach. Will continue to monitor patient throughout shift.
--- NOTE | 2021-06-18 14:05 | NUR ---
Patient has been discharged and room has been cleared of all personal belongings to include cell phone and gore seamer. Discharge paperwork has been reviewed and signed. Patient was taken out via W/C and seatbelted in for ride home by ESTELLA.
--- NOTE | 2021-06-18 14:09 | NUR ---
Patient has completed all therapies for the day and is in bed sleeping. Call light and bedside table are within reach.
--- NOTE | 2021-06-18 14:13 | NUR ---
Reviewed the Team conference notes w/ pt. He stated he understood & agreed w/ current level of functioning. Informed of d/c for 06/20/21, to home w/ home health. Pt is fine w/ this plan. He did not have any other questions or concerns at this time. Stated he is anxious to get back home.
--- NOTE | 2021-06-18 16:23 | NUR ---
fire crew worker spoke with patient's Beena ([phone]) about the different HH agencies that service the area they live in. Beena verbalizes that she does not feel like doing HH is going to be the best option for this patient as they have little room in their home to move around in and that their dogs will sit and bark and would be a barrier to the quality of therapy. Beena would like for the patient to be established with out patient physical therapy somewhere in [place]. When asked if she would be willing to provide consistent transportation for his therapy she states yes. I informed her that i would have to speak with the therapy team in the morning and get their recommendation on the above and report back to her.
[2021-06-18 17:33] VITALS: BP 120/72; PULSE 73; TEMP 97.8
--- NOTE | 2021-06-18 19:30 | NUR ---
RECEIVED CHANGE OF SHIFT REPORT FROM DAY SHIFT RN.
--- NOTE | 2021-06-19 04:00 | NUR ---
PATIENT SLEEPING, DOES NOT WAKE WHEN NURSING STAFF ENTER ROOM ON NURSING ROUNDS. BREATHING NONLABORED AND EVEN. CALL LIGHT WITHIN REACH, BED ALARM ON.
[2021-06-19 05:11] VITALS: BP 120/78; PULSE 62; TEMP 97.6
--- NOTE | 2021-06-19 06:53 | NUR ---
Report received from MAYCO Bang. Patient is sleeping in bed. Call light and bedside table are within reach. Will continue to monitor patient throughout shift.
--- NOTE | 2021-06-19 07:13 | NUR ---
CHANGE OF SHIFT REPORT GIVEN TO DAY SHIFT SULTANA MAO.
--- NOTE | 2021-06-19 13:42 | NUR ---
Called and left message for the patient's Beena about what out patient therapy center she would like to be set up with and where she would like to receive his walker from.
--- NOTE | 2021-06-19 13:44 | NUR ---
Patient has completed all therapies for the day and is resting in bed. Call light and bedside table are within reach.
[2021-06-19 17:34] VITALS: BP 112/67; PULSE 67; TEMP 97.6
--- NOTE | 2021-06-19 21:00 | NUR ---
PT RESTINGN IN BED. NO NEEDS AT THIS TIME. REMAINS IN ISOLATION FOR MRSA.
[2021-06-20 04:10] VITALS: BP 118/61; PULSE 67; TEMP 97.7
--- NOTE | 2021-06-20 09:35 | NUR ---
Attempt made to contact Beena, the patient to discuss where they would like the patient's outpatient PT to be established at and where the walker order needs to be sent to. Message left for IPR director Vandana to inform of the above. Will continue to make contact with the patient's .
[2021-06-20] MEDS ORDERED: ASPI325T6 PO (09:57)
[2021-06-20] MEDS ORDERED: VOLTAREN GEL 1%1 TU TP (09:58)
[2021-06-20] MEDS ORDERED: ROXICODONE 55 MG/TAB PO ×4 (10:01→11:36)
--- NOTE | 2021-06-20 10:01 | NUR ---
PT RESTING IN BED. ANTICIPATE DISCHARGE LATER TODAY. PT DENIES NEEDS, INCISIONS TO RIGHT HIP CDI. PROXIMAL INCISIONS TELEPHONE WORKER DISTAL GAUZE CDI.
--- NOTE | 2021-06-20 10:38 | NUR ---
vegetable harvest worker talked the patient's who reports that they would like the patient's therapy to be scheduled with [facility] ([facility] location). Facility contacted and clinical information faxed. They will call the patient to schedule the appointment. Patient's is ok with the patient's walker being set up with [facility]. Facility contacted and due to staffing shortages request that the patient's pick the walker up. Confirmed with Vandana [facility] director if this would be ok, and it would. Clinical information and order faxed to [facility]. Patient's notified of the above and is in agreement to the plan.
--- NOTE | 2021-06-20 11:32 | NUR ---
Patient presented with MCR Im form due to discharge. Patient is provided education and patient verbalizes his understanding of the above and signed form with no questions. Copy placed in the patient's chart and original is provided to the patient.
--- NOTE | 2021-06-20 14:11 | NUR ---
DISCHARGE INSTRUCTIONS REVIEWED WITH PT AND . QUESTIONS SOLICITED AND ANSWERED. PT LEFT UNIT IN WHEEL CHAIR WITH STAFF.
== END 2021-06-20 14:12 | disposition home or self-care (01) | DRG 560 ==
PROVIDERS: ADMIT Physical Medicine & Rehabilitation Sports Medicine
PROC: 3E0U33Z Introduction of Anti-inflammatory into Joints, Percutaneous Approach (ICD-10-PCS; principal; 2021-06-17)
PROC: 3E0U33Z Introduction of Anti-inflammatory into Joints, Percutaneous Approach (ICD-10-PCS; 2021-06-17)
DX: S72.141D Displaced intertrochanteric fracture of right femur, subsequent encounter for closed fracture with routine healing (principal); I50.22 Chronic systolic (congestive) heart failure; I48.20 Chronic atrial fibrillation, unspecified; I25.5 Ischemic cardiomyopathy; D72.828 Other elevated white blood cell count; D64.89 Other specified anemias; R26.89 Other abnormalities of gait and mobility; E78.5 Hyperlipidemia, unspecified; M21.42 Flat foot [pes planus] (acquired), left foot; M21.41 Flat foot [pes planus] (acquired), right foot; I11.0 Hypertensive heart disease with heart failure; F32.A Depression, unspecified; E11.42 Type 2 diabetes mellitus with diabetic polyneuropathy; M17.0 Bilateral primary osteoarthritis of knee; W10.8XXD Fall (on) (from) other stairs and steps, subsequent encounter; Z73.6 Limitation of activities due to disability; Z79.84 Long term (current) use of oral hypoglycemic drugs; Z79.891 Long term (current) use of opiate analgesic; Z79.82 Long term (current) use of aspirin; Z79.899 Other long term (current) drug therapy; Z87.891 Personal history of nicotine dependence
CPT/HCPCS: 99222; J3301